=== PATIENT | male | born 1940 | race Caucasian/White ===

== ENCOUNTER 2017-08-28 14:46 | Emergency (ER) | payer MEDICARE, OTHER ==
[~2017-08-28] VITALS: Ht 193 cm; Wt 89.5 kg
[~2017-08-28 14:46] MED LIST: ALBU18HF2; ALBU8.5H8 INH; ALLO100T PO; ALPR-624 PO; ASPI81TA52 PO; ATOR40TA PO; BUPR150T8 PO; CALC0.2535 PO; FLUT1DIS4 INH; FURO80TA3 PO; GABA-532 PO; HYDR-565 PO; METH500T PO; MUPI22OI30 TP; POTA20TA10; PRED5TAB PO; TIOT18CA3; WALKERFR; WARF7.5T5 PO
[2017-08-28 16:02] LABS: BASOPHILS % (AUTO) 0.3 % (0-1); EOSINOPHILS # (AUTO) 0.1 X10'3 (0-0.9); EOSINOPHILS % (AUTO) 2.2 % (0-6); HEMATOCRIT 38.8 % (42.0-52.0); HEMOGLOBIN 13.1 g/dl (14.0-17.9); LYMPHOCYTES # (AUTO) 0.7 X10'3 (1.1-4.8); LYMPHOCYTES % (AUTO) 12.3 % (21-51); MEAN CORPUSCULAR HEMOGLOBIN 31.4 PG (27.0-31.0); MEAN CORPUSCULAR HGB CONC 33.7 % (33.0-36.5); MEAN CORPUSCULAR VOLUME 93.1 FL (78-98); MEAN PLATELET VOLUME 8.2 FL (7.4-10.4); MONOCYTES # (AUTO) 0.4 X10'3 (0-0.9); MONOCYTES % (AUTO) 6.6 % (2-12); NEUTROPHILS # (AUTO) 4.3 X10'3 (1.8-7.7); NEUTROPHILS % (AUTO) 78.6 % (42-75); PLATELET COUNT 98 X10'3 (140-440); RED BLOOD COUNT 4.17 X10'6 (4.70-6.10); RED CELL DISTRIBUTION WIDTH 22.3 % (11.5-14.5); WHITE BLOOD COUNT 5.5 X10'3 (4.5-11.0)
[2017-08-28 16:07] LABS: INR 3.5 INR; PROTHROMBIN TIME 34.9 SECONDS (9.0-12.0)
[2017-08-28 16:21] LABS: ALANINE AMINOTRANSFERASE 32 U/L (12-78); ALBUMIN/GLOBULIN RATIO 0.8 (1.1-1.5); ALKALINE PHOSPHATASE 133 IU/L (46-116); ANION GAP 7 (8-16); ASPARTATE AMINO TRANSFERASE 37 U/L (10-37); BILIRUBIN,TOTAL 1.2 MG/DL (0.1-1.0); BLOOD UREA NITROGEN 19 MG/DL (7-18); BUN/CREATININE RATIO 13.2 (5.4-32.0); CALCIUM 8.8 MG/DL (8.5-10.1); CHLORIDE 103 MMOL/L (99-107); CREATININE 1.44 MG/DL (0.60-1.10); GLUCOSE 97 MG/DL (70-104); MAGNESIUM 1.9 MG/DL (1.5-2.4); POTASSIUM 3.9 MMOL/L (3.5-5.1); SODIUM 140 MMOL/L (135-145); TOTAL CARBON DIOXIDE 30.4 MMOL/L (24-32); TOTAL PROTEIN 6.7 G/DL (6.4-8.2); eGFR 48 ML/MIN
[2017-08-28] MEDS ORDERED: HYDROcodone/acetaminophen 5mg/325mg tablet PO ONE (16:40)
[2017-08-28 17:09] LABS: D-DIMER 1.17 MG/L FEU (0-0.50)
[2017-08-28] MEDS ORDERED: LEVO500T2 PO (17:28)
[2017-08-28] MEDS ORDERED: HYDR-3965 PO (17:28)
[2017-08-28] MEDS ORDERED: ACET-1 PO (17:35)
[2017-08-28 17:47] VITALS: BP 134/57
== END 2017-08-28 19:25 | disposition home or self-care (01) ==
LOC: ER 14:46
DX: S32.010A Wedge compression fracture of first lumbar vertebra, initial encounter for closed fracture (principal); J18.9 Pneumonia, unspecified organism; J44.0 Chronic obstructive pulmonary disease with (acute) lower respiratory infection; K21.9 Gastro-esophageal reflux disease without esophagitis; I13.0 Hypertensive heart and chronic kidney disease with heart failure and stage 1 through stage 4 chronic kidney disease, or unspecified chronic kidney disease; N18.9 Chronic kidney disease, unspecified; G89.29 Other chronic pain; F41.9 Anxiety disorder, unspecified; F32.9 Major depressive disorder, single episode, unspecified; M10.9 Gout, unspecified; I50.9 Heart failure, unspecified; Z95.1 Presence of aortocoronary bypass graft; Z86.73 Personal history of transient ischemic attack (TIA), and cerebral infarction without residual deficits; W01.0XXA Fall on same level from slipping, tripping and stumbling without subsequent striking against object, initial encounter; Y93.89 Activity, other specified; Y92.89 Other specified places as the place of occurrence of the external cause; Y99.8 Other external cause status
CPT/HCPCS: 36415; 71010; 72100; 80053; 83735; 83880; 84145; 84484; 85025; 85379; 85610; 93005; 99285; A6449; J7030

== ENCOUNTER 2017-09-15 19:34 | Inpatient (IN) | payer MEDICARE, OTHER ==
[~2017-09-15] VITALS: Ht 193 cm; Wt 93.6 kg
[~2017-09-15 19:34] MED LIST changes: +ACET-1 PO; +HYDR-3965 PO; -TIOT18CA3; +TIOT18CA3 IH
[2017-09-15] MEDS ORDERED: ipratropium/albuterol 3ml nebule NEB ONE (20:05)
[2017-09-15] MEDS ORDERED: methylPREDNISolone sod succ 125mg/2ml vial IV ONE (20:05)
[2017-09-15 20:24] LABS: BASOPHILS # (AUTO) 0.1 X10'3 (0-0.2); BASOPHILS % (AUTO) 0.5 % (0-1); EOSINOPHILS % (AUTO) 0.2 % (0-6); HEMATOCRIT 38.4 % (42.0-52.0); HEMOGLOBIN 12.7 g/dl (14.0-17.9); LYMPHOCYTES # (AUTO) 1.2 X10'3 (1.1-4.8); LYMPHOCYTES % (AUTO) 5.9 % (21-51); MEAN CORPUSCULAR HEMOGLOBIN 31.9 PG (27.0-31.0); MEAN CORPUSCULAR HGB CONC 33.1 % (33.0-36.5); MEAN CORPUSCULAR VOLUME 96.2 FL (78-98); MEAN PLATELET VOLUME 7.3 FL (7.4-10.4); MONOCYTES # (AUTO) 0.3 X10'3 (0-0.9); MONOCYTES % (AUTO) 1.7 % (2-12); NEUTROPHILS # (AUTO) 18.1 X10'3 (1.8-7.7); NEUTROPHILS % (AUTO) 91.7 % (42-75); PLATELET COUNT 178 X10'3 (140-440); RED BLOOD COUNT 3.99 X10'6 (4.70-6.10); RED CELL DISTRIBUTION WIDTH 22.1 % (11.5-14.5); WHITE BLOOD COUNT 19.7 X10'3 (4.5-11.0)
[2017-09-15] MEDS ORDERED: COU5T PO (20:26)
[2017-09-15] MEDS ORDERED: ADV50500 IH (20:27)
[2017-09-15 20:36] LABS: D-DIMER 1.13 MG/L FEU (0-0.50); INR 2.3 INR; PROTHROMBIN TIME 22.7 SECONDS (9.0-12.0)
[2017-09-15 20:41] LABS: ABG BASE EXCESS 4.1 mmol/L (-2.0-3.0); ABG HCO3 27.2 mmol/L (22.0-26.0); ABG OXYGEN SATURATION 95.3 % (95-98); ABG PH (T) 7.487 (7.350-7.450); ABG PO2 (T) 78.7 mmHg (83-108); FCOHb 1.6 % (0.5-1.5); FLOW 15 L/min; FMetHb 0.2 % (0.3-1.12); FO2Hb 93.6 % (94-100); PATIENT TEMPERATURE 37.8; RESPIRATORY RATE 26 b/min; TOTAL HEMOGLOBIN 13.2 G/dl (14.0-18.0)
[2017-09-15 20:50] LABS: ALANINE AMINOTRANSFERASE 25 U/L (12-78); ALBUMIN 3.2 G/DL (3.4-5.0); ALBUMIN/GLOBULIN RATIO 0.8 (1.1-1.5); ALKALINE PHOSPHATASE 127 IU/L (46-116); ANION GAP 4 (8-16); ASPARTATE AMINO TRANSFERASE 30 U/L (10-37); BILIRUBIN,TOTAL 1.3 MG/DL (0.1-1.0); BLOOD UREA NITROGEN 17 MG/DL (7-18); BUN/CREATININE RATIO 12.1 (5.4-32.0); CHLORIDE 104 MMOL/L (99-107); GLUCOSE 82 MG/DL (70-104); SODIUM 138 MMOL/L (135-145); TOTAL CARBON DIOXIDE 29.9 MMOL/L (24-32); eGFR 50 ML/MIN
[2017-09-15] MEDS ORDERED: levoFLOXACIN-Levaquin 500mg/D5 100 ML IV ONE (20:50)
[2017-09-15] MEDS ORDERED: ACET-1 (21:19)
[2017-09-15] MEDS ORDERED: acetaminophen 325mg tablet PO PRN (22:00)
[2017-09-15] MEDS ORDERED: ondansetron/PF 4mg/2ml inj IV PRN (22:00)
[2017-09-15] MEDS ORDERED: mag hydrox/Alum hydrox/simeth 30ml oral suspension PO PRN (22:00)
[2017-09-15] MEDS ORDERED: magnesium hydroxide 30ml (MOM) UD suspension PO PRN (22:00)
[2017-09-15 22:10] LABS: CLARITY,URINE Clear (Clear); COLOR,URINE Yellow (Yellow); GLUCOSE, URINE Negative (Neg); KETONES,URINE Negative (Neg); LEUKOCYTE ESTERASE ,URINE Trace (Neg); NITRITES, URINE Negative (Neg); OCCULT BLOOD,URINE Negative (Neg); PH,URINE 6.5 (4.8-8.0); PROTEIN,URINE Negative (Neg)
[2017-09-15] MEDS ORDERED: albuterol 2.5 MG/3 ML nebule NEB PRN (22:10)
[2017-09-15] MEDS ORDERED: ALPRAZolam 0.25mg tablet PO PRN (22:10)
[2017-09-15 22:18] LABS: UA COLLECTION TYPE STRAIGHT CATH
[2017-09-15 22:29] LABS: BACTERIA,URINE NONE SEEN /HPF (Neg); RBC,URINE NONE SEEN /HPF (0-2); SQUAMOUS EPITHELIAL CELL,UR FEW /LPF (FEW); WBC,URINE NONE SEEN /HPF (0-4)
[2017-09-15 22:47] LABS: ANISOCYTOSIS 3+; ELLIPTOCYTES 1+; PLATELET ESTIMATE NORMAL; POLYCHROMASIA FEW; TOTAL CELLS COUNTED 100
[2017-09-15 22:48] LABS: TOXIC GRANULATION 1+; TOXIC VACUOLATION FEW
[2017-09-15 23:00] VITALS: BP 126/65
[2017-09-16] MEDS: methylPREDNISolone sod succ/PF 40mg inj. IV SCH ×3 (00:21→16:45)
[2017-09-16 02:57] LABS: BASOPHILS % (AUTO) 0.1 % (0-1); EOSINOPHILS # (AUTO) 0.4 X10'3 (0-0.9); EOSINOPHILS % (AUTO) 1.9 % (0-6); HEMATOCRIT 34.9 % (42.0-52.0); HEMOGLOBIN 11.6 g/dl (14.0-17.9); LYMPHOCYTES # (AUTO) 0.6 X10'3 (1.1-4.8); MEAN CORPUSCULAR HEMOGLOBIN 32.1 PG (27.0-31.0); MEAN CORPUSCULAR HGB CONC 33.3 % (33.0-36.5); MEAN CORPUSCULAR VOLUME 96.4 FL (78-98); MONOCYTES # (AUTO) 0.1 X10'3 (0-0.9); MONOCYTES % (AUTO) 0.6 % (2-12); NEUTROPHILS # (AUTO) 19.6 X10'3 (1.8-7.7); NEUTROPHILS % (AUTO) 94.4 % (42-75); PLATELET COUNT 154 X10'3 (140-440); RED BLOOD COUNT 3.62 X10'6 (4.70-6.10); RED CELL DISTRIBUTION WIDTH 22.3 % (11.5-14.5); WHITE BLOOD COUNT 20.8 X10'3 (4.5-11.0)
[2017-09-16 03:00] VITALS: BP 106/55
[2017-09-16 03:08] LABS: INR 2.6 INR; PROTHROMBIN TIME 25.8 SECONDS (9.0-12.0)
[2017-09-16 03:32] LABS: ALANINE AMINOTRANSFERASE 23 U/L (12-78); ALBUMIN 2.7 G/DL (3.4-5.0); ALBUMIN/GLOBULIN RATIO 0.8 (1.1-1.5); ALKALINE PHOSPHATASE 105 IU/L (46-116); ANION GAP 4 (8-16); ASPARTATE AMINO TRANSFERASE 23 U/L (10-37); BILIRUBIN,TOTAL 1.2 MG/DL (0.1-1.0); BLOOD UREA NITROGEN 21 MG/DL (7-18); CALCIUM 8.6 MG/DL (8.5-10.1); CHLORIDE 104 MMOL/L (99-107); GLUCOSE 190 MG/DL (70-104); POTASSIUM 4.1 MMOL/L (3.5-5.1); SODIUM 138 MMOL/L (135-145); TOTAL CARBON DIOXIDE 30.5 MMOL/L (24-32); TOTAL PROTEIN 6.1 G/DL (6.4-8.2); eGFR 46 ML/MIN
[2017-09-16] MEDS: ipratropium 0.5 MG/2.5ML nebule IH SCH ×4 (03:38→20:36)
[2017-09-16 06:35] VITALS: BP 125/62
[2017-09-16] MEDS ORDERED: non-formulary drug (Atorvastatin Calcium* (Lipitor*) 1 TAB) PO SCH (08:00)
[2017-09-16] MEDS: mupirocin 2% ointment 22GM TP SCH ×2 (08:00→20:00)
[2017-09-16] MEDS ORDERED: FUROSEMIDE 40 MG PO SCH (08:00)
[2017-09-16] MEDS ORDERED: non-formulary drug (Tiotropium Bromide (Spiriva) 1 PUFF) IH SCH (08:00)
[2017-09-16] MEDS: gabapentin 300mg capsule PO SCH ×3 (09:18→21:39)
[2017-09-16] MEDS: atorvastatin 20mg tablet PO SCH (09:18)
[2017-09-16] MEDS: furosemide 40mg tablet PO SCH ×2 (09:19→21:39)
[2017-09-16] MEDS: allopurinol 100mg tablet PO SCH (09:19)
[2017-09-16 11:00] VITALS: BP 120/55
[2017-09-16] MEDS: levoFLOXACIN 750MG TABLET PO SCH (11:00)
[2017-09-16 15:00] VITALS: BP 142/65
[2017-09-16] MEDS: cefTRIAXone 1g/NS 100ml IVPB 100 ML IV SCH (16:45)
[2017-09-16 19:00] VITALS: BP 123/68
[2017-09-16] MEDS ORDERED: warfarin 5mg tablet PO SCH (21:00)
[2017-09-16 23:00] VITALS: BP 120/58
[2017-09-17] VITALS (7 sets, daily range): BP systolic 114–143; BP diastolic 52–64
[2017-09-17] MEDS: methylPREDNISolone sod succ/PF 40mg inj. IV SCH ×3 (00:33→16:59)
[2017-09-17] MEDS: ipratropium 0.5 MG/2.5ML nebule IH SCH ×4 (03:00→20:45)
[2017-09-17 05:27] LABS: INR 1.6 INR; PROTHROMBIN TIME 16.3 SECONDS (9.0-12.0)
[2017-09-17 05:34] LABS: BASOPHILS % (AUTO) 0 % (0-1); EOSINOPHILS # (AUTO) 0.3 X10'3 (0-0.9); EOSINOPHILS % (AUTO) 1.8 % (0-6); HEMATOCRIT 32.4 % (42.0-52.0); HEMOGLOBIN 10.7 g/dl (14.0-17.9); LYMPHOCYTES # (AUTO) 0.5 X10'3 (1.1-4.8); LYMPHOCYTES % (AUTO) 3.3 % (21-51); MEAN CORPUSCULAR HGB CONC 33.1 % (33.0-36.5); MEAN CORPUSCULAR VOLUME 96.6 FL (78-98); MEAN PLATELET VOLUME 8.4 FL (7.4-10.4); MONOCYTES # (AUTO) 0.3 X10'3 (0-0.9); MONOCYTES % (AUTO) 1.8 % (2-12); NEUTROPHILS # (AUTO) 14.4 X10'3 (1.8-7.7); NEUTROPHILS % (AUTO) 93.1 % (42-75); PLATELET COUNT 133 X10'3 (140-440); RED BLOOD COUNT 3.36 X10'6 (4.70-6.10); RED CELL DISTRIBUTION WIDTH 21.7 % (11.5-14.5); WHITE BLOOD COUNT 15.5 X10'3 (4.5-11.0)
[2017-09-17 05:44] LABS: ALANINE AMINOTRANSFERASE 23 U/L (12-78); ALBUMIN 2.5 G/DL (3.4-5.0); ALBUMIN/GLOBULIN RATIO 0.8 (1.1-1.5); ALKALINE PHOSPHATASE 96 IU/L (46-116); ANION GAP 5 (8-16); ASPARTATE AMINO TRANSFERASE 20 U/L (10-37); BILIRUBIN,TOTAL 0.7 MG/DL (0.1-1.0); BLOOD UREA NITROGEN 24 MG/DL (7-18); BUN/CREATININE RATIO 18.5 (5.4-32.0); CALCIUM 8.5 MG/DL (8.5-10.1); CHLORIDE 104 MMOL/L (99-107); GLUCOSE 141 MG/DL (70-104); POTASSIUM 3.6 MMOL/L (3.5-5.1); SODIUM 139 MMOL/L (135-145); TOTAL PROTEIN 5.8 G/DL (6.4-8.2); eGFR 54 ML/MIN
[2017-09-17] MEDS: cefTRIAXone 1g/NS 100ml IVPB 100 ML IV SCH (08:09)
[2017-09-17] MEDS: allopurinol 100mg tablet PO SCH (08:09)
[2017-09-17] MEDS: LACTOBACILLUS RHAMNOSUS GG 15 billion unit sprinkle caps PO SCH (08:09)
[2017-09-17] MEDS: gabapentin 300mg capsule PO SCH ×3 (08:09→20:23)
[2017-09-17] MEDS: furosemide 40mg tablet PO SCH ×2 (08:09→20:24)
[2017-09-17] MEDS: atorvastatin 20mg tablet PO SCH (08:09)
[2017-09-17] MEDS: mupirocin 2% ointment 22GM TP SCH ×2 (13:51→20:24)
[2017-09-17] MEDS: levoFLOXACIN 750MG TABLET PO SCH (13:51)
[2017-09-17] MEDS ORDERED: warfarin 10mg tablet PO ONE (21:00)
[2017-09-18] MEDS: methylPREDNISolone sod succ/PF 40mg inj. IV SCH ×4 (00:47→20:26)
[2017-09-18 03:00] VITALS: BP 136/60
[2017-09-18] MEDS: ipratropium/albuterol 3ml nebule NEB SCH ×4 (03:38→21:05)
[2017-09-18 06:00] VITALS: BP 109/50
[2017-09-18 06:40] LABS: INR 1.5 INR; PROTHROMBIN TIME 15.6 SECONDS (9.0-12.0)
[2017-09-18 07:06] LABS: BASOPHILS % (AUTO) 0.1 % (0-1); EOSINOPHILS % (AUTO) 0 % (0-6); HEMATOCRIT 36.1 % (42.0-52.0); HEMOGLOBIN 12.6 g/dl (14.0-17.9); LYMPHOCYTES # (AUTO) 0.5 X10'3 (1.1-4.8); LYMPHOCYTES % (AUTO) 3.5 % (21-51); MEAN CORPUSCULAR HEMOGLOBIN 33.2 PG (27.0-31.0); MEAN CORPUSCULAR HGB CONC 34.8 % (33.0-36.5); MEAN CORPUSCULAR VOLUME 95.3 FL (78-98); MEAN PLATELET VOLUME 8.3 FL (7.4-10.4); MONOCYTES # (AUTO) 0.3 X10'3 (0-0.9); NEUTROPHILS # (AUTO) 14.6 X10'3 (1.8-7.7); NEUTROPHILS % (AUTO) 94.4 % (42-75); PLATELET COUNT 211 X10'3 (140-440); RED BLOOD COUNT 3.79 X10'6 (4.70-6.10); RED CELL DISTRIBUTION WIDTH 20.1 % (11.5-14.5); WHITE BLOOD COUNT 15.4 X10'3 (4.5-11.0)
[2017-09-18 07:10] LABS: ALANINE AMINOTRANSFERASE 28 U/L (12-78); ALBUMIN 2.9 G/DL (3.4-5.0); ALBUMIN/GLOBULIN RATIO 0.8 (1.1-1.5); ALKALINE PHOSPHATASE 117 IU/L (46-116); ANION GAP 13 (8-16); ASPARTATE AMINO TRANSFERASE 25 U/L (10-37); BILIRUBIN,TOTAL 0.5 MG/DL (0.1-1.0); BLOOD UREA NITROGEN 31 MG/DL (7-18); BUN/CREATININE RATIO 18.2 (5.4-32.0); CALCIUM 9.1 MG/DL (8.5-10.1); CHLORIDE 105 MMOL/L (99-107); GLUCOSE 153 MG/DL (70-104); POTASSIUM 3.7 MMOL/L (3.5-5.1); SODIUM 144 MMOL/L (135-145); TOTAL CARBON DIOXIDE 26.2 MMOL/L (24-32); TOTAL PROTEIN 6.7 G/DL (6.4-8.2); eGFR 40 ML/MIN
[2017-09-18] MEDS: mupirocin 2% ointment 22GM TP SCH ×2 (08:14→20:26)
[2017-09-18] MEDS: cefTRIAXone 1g/NS 100ml IVPB 100 ML IV SCH (08:14)
[2017-09-18] MEDS: furosemide 40mg tablet PO SCH (08:20)
[2017-09-18] MEDS: LACTOBACILLUS RHAMNOSUS GG 15 billion unit sprinkle caps PO SCH (08:20)
[2017-09-18] MEDS: gabapentin 300mg capsule PO SCH ×3 (08:20→20:26)
[2017-09-18] MEDS: atorvastatin 20mg tablet PO SCH (08:20)
[2017-09-18] MEDS: allopurinol 100mg tablet PO SCH (08:21)
[2017-09-18 11:00] VITALS: BP 124/70
[2017-09-18] MEDS: levoFLOXACIN 750MG TABLET PO SCH (11:19)
[2017-09-18 13:45] LABS: ABG BASE EXCESS 2.7 mmol/L (-2.0-3.0); ABG HCO3 26.4 mmol/L (22.0-26.0); ABG OXYGEN SATURATION 92.9 % (95-98); ABG PCO2 (T) 37.4 mmHg (35.0-48.0); ABG PH (T) 7.466 (7.350-7.450); ABG PO2 (T) 67.8 mmHg (83-108); ALLEN'S TEST Positive; FCOHb 1.1 % (0.5-1.5); FLOW 10 L/min; FMetHb 0.2 % (0.3-1.12); FO2Hb 91.7 % (94-100); TOTAL HEMOGLOBIN 13.1 G/dl (14.0-18.0)
[2017-09-18 15:00] VITALS: BP 131/67
[2017-09-18 19:00] VITALS: BP 156/75
[2017-09-18] MEDS ORDERED: warfarin 4mg tablet PO ONE (21:00)
[2017-09-18 23:00] VITALS: BP 160/64
[2017-09-19 03:00] VITALS: BP 121/53
[2017-09-19] MEDS: ipratropium/albuterol 3ml nebule NEB SCH ×2 (03:12→08:35)
[2017-09-19 05:27] LABS: BASOPHILS % (AUTO) 0 % (0-1); EOSINOPHILS # (AUTO) 0.1 X10'3 (0-0.9); EOSINOPHILS % (AUTO) 1.5 % (0-6); HEMATOCRIT 33.4 % (42.0-52.0); HEMOGLOBIN 11.1 g/dl (14.0-17.9); LYMPHOCYTES # (AUTO) 0.2 X10'3 (1.1-4.8); LYMPHOCYTES % (AUTO) 2.2 % (21-51); MEAN CORPUSCULAR HEMOGLOBIN 31.9 PG (27.0-31.0); MEAN CORPUSCULAR HGB CONC 33.2 % (33.0-36.5); MEAN CORPUSCULAR VOLUME 96.2 FL (78-98); MEAN PLATELET VOLUME 8.1 FL (7.4-10.4); MONOCYTES # (AUTO) 0.3 X10'3 (0-0.9); MONOCYTES % (AUTO) 3.5 % (2-12); NEUTROPHILS # (AUTO) 8.8 X10'3 (1.8-7.7); NEUTROPHILS % (AUTO) 92.8 % (42-75); PLATELET COUNT 135 X10'3 (140-440); RED BLOOD COUNT 3.47 X10'6 (4.70-6.10); RED CELL DISTRIBUTION WIDTH 21.7 % (11.5-14.5); WHITE BLOOD COUNT 9.5 X10'3 (4.5-11.0)
[2017-09-19 06:00] VITALS: BP 133/67
[2017-09-19 06:03] LABS: INR 2.1 INR; PROTHROMBIN TIME 21.3 SECONDS (9.0-12.0)
[2017-09-19 06:15] LABS: ALANINE AMINOTRANSFERASE 32 U/L (12-78); ALBUMIN 2.5 G/DL (3.4-5.0); ALBUMIN/GLOBULIN RATIO 0.8 (1.1-1.5); ALKALINE PHOSPHATASE 98 IU/L (46-116); ANION GAP 8 (8-16); ASPARTATE AMINO TRANSFERASE 29 U/L (10-37); BILIRUBIN,TOTAL 0.4 MG/DL (0.1-1.0); BLOOD UREA NITROGEN 29 MG/DL (7-18); BUN/CREATININE RATIO 24.2 (5.4-32.0); CALCIUM 8.8 MG/DL (8.5-10.1); CHLORIDE 109 MMOL/L (99-107); GLUCOSE 146 MG/DL (70-104); POTASSIUM 3.3 MMOL/L (3.5-5.1); SODIUM 144 MMOL/L (135-145); TOTAL CARBON DIOXIDE 27.5 MMOL/L (24-32); TOTAL PROTEIN 5.8 G/DL (6.4-8.2); eGFR 59 ML/MIN
[2017-09-19] MEDS: atorvastatin 20mg tablet PO SCH (07:30)
[2017-09-19] MEDS: methylPREDNISolone sod succ/PF 40mg inj. IV SCH (07:31)
[2017-09-19] MEDS: cefTRIAXone 1g/NS 100ml IVPB 100 ML IV SCH (07:31)
[2017-09-19] MEDS: allopurinol 100mg tablet PO SCH (07:31)
[2017-09-19] MEDS: LACTOBACILLUS RHAMNOSUS GG 15 billion unit sprinkle caps PO SCH (07:31)
[2017-09-19] MEDS: gabapentin 300mg capsule PO SCH ×2 (07:31→13:12)
[2017-09-19] MEDS ORDERED: furosemide 40mg tablet PO SCH (08:00)
[2017-09-19] MEDS: mupirocin 2% ointment 22GM TP SCH (08:36)
[2017-09-19] MEDS ORDERED: magnesium Cl slow-release 64mg tablet PO PRN (08:55)
[2017-09-19] MEDS ORDERED: magnesium 4gm in 100ml NS 100 ML IV PRN (08:55)
[2017-09-19] MEDS ORDERED: potassium Cl 40MEQ/NS 500ml 500 ML IV PRN ×2 (08:55)
[2017-09-19] MEDS ORDERED: magnesium 2GM in 50ml NS 50 ML IV PRN (08:55)
[2017-09-19] MEDS ORDERED: potassium Cl 20 mEq SR tablet PO PRN (08:55)
[2017-09-19] MEDS: potassium Cl 20 mEq SR tablet PO PRN ×2 (09:03→13:12)
[2017-09-19] MEDS ORDERED: FURO40TA4 PO (09:38)
[2017-09-19] MEDS ORDERED: ADV50100 INH (09:39)
[2017-09-19 11:00] VITALS: BP 165/64
[2017-09-19] MEDS: levoFLOXACIN 750MG TABLET PO SCH (11:05)
[2017-09-19] MEDS ORDERED: warfarin 3mg tablet PO ONE (21:00)
== END 2017-09-19 14:13 | disposition home health service (06) | DRG 871 ==
LOC: ER 19:35 → ED HOLD 22:00 → PCU 3S 09-16 00:04
PROVIDERS: ADMIT Internal Medicine; ATTEND Internal Medicine
DX: A41.9 Sepsis, unspecified organism (principal); J96.21 Acute and chronic respiratory failure with hypoxia; I13.0 Hypertensive heart and chronic kidney disease with heart failure and stage 1 through stage 4 chronic kidney disease, or unspecified chronic kidney disease; N17.9 Acute kidney failure, unspecified; J18.1 Lobar pneumonia, unspecified organism; I48.91 Unspecified atrial fibrillation; I50.9 Heart failure, unspecified; J44.0 Chronic obstructive pulmonary disease with (acute) lower respiratory infection; J44.1 Chronic obstructive pulmonary disease with (acute) exacerbation; G47.30 Sleep apnea, unspecified; I87.8 Other specified disorders of veins; K21.9 Gastro-esophageal reflux disease without esophagitis; N18.9 Chronic kidney disease, unspecified; F32.9 Major depressive disorder, single episode, unspecified; F41.9 Anxiety disorder, unspecified; G89.29 Other chronic pain; M10.9 Gout, unspecified; M54.9 Dorsalgia, unspecified; R79.1 Abnormal coagulation profile; Z99.81 Dependence on supplemental oxygen; Z95.1 Presence of aortocoronary bypass graft; Z88.8 Allergy status to other drugs, medicaments and biological substances; Z79.899 Other long term (current) drug therapy; Z79.01 Long term (current) use of anticoagulants; Z79.82 Long term (current) use of aspirin; Z87.891 Personal history of nicotine dependence; Z86.718 Personal history of other venous thrombosis and embolism; Z86.73 Personal history of transient ischemic attack (TIA), and cerebral infarction without residual deficits
CPT/HCPCS: 36415; 36600; 71045; 80053; 81001; 82803; 83605; 83880; 84145; 84484; 85018; 85025; 85379; 85610; 87040; 87070; 87088; 87502; 87503; 93005; 93970; 94640; 94760; 96365; 96375; 97110; 97116; 97161; 99285; A4353; A6213; J0696; J1956; J2920; J2930

== ENCOUNTER 2017-09-22 14:45 | Inpatient (IN) | payer MEDICARE, OTHER ==
[~2017-09-22] VITALS: Ht 193 cm; Wt 95.0 kg
[~2017-09-22 14:45] MED LIST changes: +ACET-1; -ACET-1 PO; +ADV50100 INH; -ALBU18HF2; -ASPI81TA52 PO; -BUPR150T8 PO; -CALC0.2535 PO; +COU5T PO; -FLUT1DIS4 INH; +FURO40TA4 PO; -FURO80TA3 PO; -HYDR-3965 PO; -HYDR-565 PO; -METH500T PO; -WARF7.5T5 PO
[2017-09-22] MEDS ORDERED: normal saline 1000ML IV soln IVB ONE (15:00)
[2017-09-22] MEDS ORDERED: magnesium 2GM in 50ml NS 50 ML IV ONE (15:00)
[2017-09-22] MEDS ORDERED: methylPREDNISolone sod succ 125mg/2ml vial IV ONE (15:00)
[2017-09-22] MEDS ORDERED: ipratropium/albuterol 3ml nebule NEB ONE (15:00)
[2017-09-22 15:33] LABS: BASOPHILS # (AUTO) 0.4 X10'3 (0-0.2); BASOPHILS % (AUTO) 1.5 % (0-1); EOSINOPHILS # (AUTO) 0.1 X10'3 (0-0.9); EOSINOPHILS % (AUTO) 0.4 % (0-6); HEMATOCRIT 35.8 % (42.0-52.0); HEMOGLOBIN 12.8 g/dl (14.0-17.9); LYMPHOCYTES # (AUTO) 1.2 X10'3 (1.1-4.8); MEAN CORPUSCULAR HEMOGLOBIN 33.8 PG (27.0-31.0); MEAN CORPUSCULAR HGB CONC 35.8 % (33.0-36.5); MEAN CORPUSCULAR VOLUME 94.4 FL (78-98); MEAN PLATELET VOLUME 8.1 FL (7.4-10.4); MONOCYTES # (AUTO) 1.7 X10'3 (0-0.9); NEUTROPHILS # (AUTO) 21.2 X10'3 (1.8-7.7); NEUTROPHILS % (AUTO) 86.1 % (42-75); PLATELET COUNT 171 X10'3 (140-440); RED BLOOD COUNT 3.79 X10'6 (4.70-6.10); RED CELL DISTRIBUTION WIDTH 18.8 % (11.5-14.5); WHITE BLOOD COUNT 24.6 X10'3 (4.5-11.0)
[2017-09-22 15:37] LABS: INR 2.8 INR; PROTHROMBIN TIME 28.1 SECONDS (9.0-12.0)
[2017-09-22] MEDS ORDERED: levoFLOXACIN-Levaquin 750MG/D5 150 ML IV ONE (15:50)
[2017-09-22 15:53] LABS: ALANINE AMINOTRANSFERASE 30 U/L (12-78); ALBUMIN 2.7 G/DL (3.4-5.0); ALBUMIN/GLOBULIN RATIO 0.8 (1.1-1.5); ALKALINE PHOSPHATASE 94 IU/L (46-116); ANION GAP 7 (8-16); ASPARTATE AMINO TRANSFERASE 37 U/L (10-37); BILIRUBIN,TOTAL 1.4 MG/DL (0.1-1.0); BLOOD UREA NITROGEN 30 MG/DL (7-18); BUN/CREATININE RATIO 21.4 (5.4-32.0); CALCIUM 8.4 MG/DL (8.5-10.1); CHLORIDE 103 MMOL/L (99-107); GLUCOSE 111 MG/DL (70-104); SODIUM 139 MMOL/L (135-145); TOTAL PROTEIN 5.9 G/DL (6.4-8.2); eGFR 50 ML/MIN
[2017-09-22 15:54] LABS: POTASSIUM 4.2 MMOL/L (3.5-5.1)
[2017-09-22 16:35] LABS: ABG HCO3 27.5 mmol/L (22.0-26.0); ABG OXYGEN SATURATION 86.4 % (95-98); ABG PCO2 (T) 37.5 mmHg (35.0-48.0); ABG PH (T) 7.483 (7.350-7.450); ABG PO2 (T) 49.8 mmHg (83-108); ALLEN'S TEST Positive; FCOHb 1.5 % (0.5-1.5); FLOW 4 L/min; FMetHb 0.1 % (0.3-1.12); TOTAL HEMOGLOBIN 12.9 G/dl (14.0-18.0)
[2017-09-22] MEDS ORDERED: magnesium 4gm in 100ml NS 100 ML IV PRN (16:45)
[2017-09-22] MEDS ORDERED: acetaminophen 325mg tablet PO PRN (16:45)
[2017-09-22] MEDS ORDERED: magnesium hydroxide 30ml (MOM) UD suspension PO PRN (16:45)
[2017-09-22] MEDS ORDERED: ondansetron/PF 4mg/2ml inj IV PRN (16:45)
[2017-09-22] MEDS ORDERED: HYDROcodone/acetaminophen 5mg/325mg tablet PO PRN (16:45)
[2017-09-22] MEDS ORDERED: magnesium Cl slow-release 64mg tablet PO PRN (16:45)
[2017-09-22] MEDS ORDERED: mag hydrox/Alum hydrox/simeth 30ml oral suspension PO PRN (16:45)
[2017-09-22] MEDS ORDERED: potassium Cl 20 mEq SR tablet PO PRN ×2 (16:45)
[2017-09-22] MEDS ORDERED: magnesium 2GM in 50ml NS 50 ML IV PRN (16:45)
[2017-09-22] MEDS ORDERED: bisacodyl 10mg suppository rectal RC PRN (16:45)
[2017-09-22] MEDS ORDERED: potassium Cl 40MEQ/NS 500ml 500 ML IV PRN ×2 (16:45)
[2017-09-22] MEDS ORDERED: morphine 2 MG/ML inj. syringe IV PRN ×2 (16:45)
[2017-09-22] MEDS ORDERED: HYDROcodone/acetaminophen 10/325mg tab PO PRN (16:45)
[2017-09-22] MEDS ORDERED: non-formulary drug (Albuterol Sulfate (Proair Hfa) 2 PUFFS) INH SCH (17:00)
[2017-09-22] MEDS ORDERED: albuterol 2.5 MG/3 ML nebule NEB PRN (17:05)
[2017-09-22] MEDS: normal saline 1000ml 1,000 ML IV SCH (18:03)
[2017-09-22 20:00] VITALS: BP 130/92
[2017-09-22] MEDS ORDERED: non-formulary drug (Fluticasone/Salmeterol (Advair 100-50 Diskus) 1 PUFF) INH SCH (20:00)
[2017-09-22] MEDS: ipratropium/albuterol 3ml nebule NEB SCH ×2 (20:35→23:50)
[2017-09-22] MEDS: docusate sod 100mg capsule PO SCH (20:56)
[2017-09-22] MEDS: clindamycin 600mg/D5W 50ml 50 ML IV SCH (20:56)
[2017-09-22] MEDS: warfarin 5mg tablet PO SCH ×2 (21:00→21:42)
[2017-09-22 23:00] VITALS: BP 133/64
[2017-09-22] MEDS: methylPREDNISolone sod succ 125mg/2ml vial IV SCH (23:45)
[2017-09-23] MEDS: clindamycin 600mg/D5W 50ml 50 ML IV SCH ×4 (01:50→20:18)
[2017-09-23] MEDS: ipratropium/albuterol 3ml nebule NEB SCH ×6 (03:20→23:00)
[2017-09-23 06:05] LABS: BASOPHILS % (AUTO) 0 % (0-1); EOSINOPHILS # (AUTO) 0.3 X10'3 (0-0.9); EOSINOPHILS % (AUTO) 2.2 % (0-6); HEMATOCRIT 33.3 % (42.0-52.0); HEMOGLOBIN 11.2 g/dl (14.0-17.9); LYMPHOCYTES # (AUTO) 0.3 X10'3 (1.1-4.8); LYMPHOCYTES % (AUTO) 1.7 % (21-51); MEAN CORPUSCULAR HEMOGLOBIN 31.9 PG (27.0-31.0); MEAN CORPUSCULAR HGB CONC 33.7 % (33.0-36.5); MEAN CORPUSCULAR VOLUME 94.6 FL (78-98); MEAN PLATELET VOLUME 8.1 FL (7.4-10.4); MONOCYTES # (AUTO) 0.1 X10'3 (0-0.9); MONOCYTES % (AUTO) 0.7 % (2-12); NEUTROPHILS # (AUTO) 15.1 X10'3 (1.8-7.7); NEUTROPHILS % (AUTO) 95.4 % (42-75); PLATELET COUNT 133 X10'3 (140-440); RED BLOOD COUNT 3.52 X10'6 (4.70-6.10); RED CELL DISTRIBUTION WIDTH 20.5 % (11.5-14.5); WHITE BLOOD COUNT 15.9 X10'3 (4.5-11.0)
[2017-09-23 06:21] LABS: INR 2.9 INR; PROTHROMBIN TIME 29.3 SECONDS (9.0-12.0)
[2017-09-23 06:32] LABS: ALANINE AMINOTRANSFERASE 30 U/L (12-78); ALBUMIN 2.3 G/DL (3.4-5.0); ALBUMIN/GLOBULIN RATIO 0.7 (1.1-1.5); ALKALINE PHOSPHATASE 85 IU/L (46-116); ANION GAP 8 (8-16); ASPARTATE AMINO TRANSFERASE 23 U/L (10-37); BILIRUBIN,TOTAL 0.9 MG/DL (0.1-1.0); BLOOD UREA NITROGEN 29 MG/DL (7-18); BUN/CREATININE RATIO 24.2 (5.4-32.0); CALCIUM 8.2 MG/DL (8.5-10.1); CHLORIDE 103 MMOL/L (99-107); GLUCOSE 194 MG/DL (70-104); MAGNESIUM 2.4 MG/DL (1.5-2.4); POTASSIUM 3.7 MMOL/L (3.5-5.1); SODIUM 139 MMOL/L (135-145); TOTAL CARBON DIOXIDE 28.3 MMOL/L (24-32); TOTAL PROTEIN 5.5 G/DL (6.4-8.2); eGFR 59 ML/MIN
[2017-09-23] MEDS: K and/or MAG REPLACEMENT MC SCH (07:40)
[2017-09-23] MEDS: normal saline 1000ml 1,000 ML IV SCH (07:48)
[2017-09-23] MEDS: methylPREDNISolone sod succ 125mg/2ml vial IV SCH ×3 (07:49→20:19)
[2017-09-23] MEDS: docusate sod 100mg capsule PO SCH ×2 (07:53→20:18)
[2017-09-23] MEDS: atorvastatin 20mg tablet PO SCH (07:53)
[2017-09-23] MEDS: allopurinol 100mg tablet PO SCH (07:53)
[2017-09-23 08:00] VITALS: BP 125/63
[2017-09-23] MEDS ORDERED: non-formulary drug (Atorvastatin Calcium* (Lipitor*) 1 TAB) PO SCH (08:00)
[2017-09-23] MEDS: levoFLOXACIN-Levaquin 750MG/D5 150 ML IV SCH (09:30)
[2017-09-23] MEDS ORDERED: normal saline 1000ml 1,000 ML IVB ONE (10:24)
[2017-09-23 11:00] VITALS: BP 126/61
[2017-09-23] MEDS: Potassium Cl inj 20 MEQ in normal saline 1000ml 1,000 ML IV SCH ×2 (15:31→20:19)
[2017-09-23] MEDS ORDERED: MESSAGE TO NURSING PO NR (18:00)
[2017-09-23 20:00] VITALS: BP 110/63
[2017-09-23 23:00] VITALS: BP 123/65
[2017-09-24] MEDS: clindamycin 600mg/D5W 50ml 50 ML IV SCH ×4 (01:46→21:33)
[2017-09-24] MEDS: Potassium Cl inj 20 MEQ in normal saline 1000ml 1,000 ML IV SCH (01:47)
[2017-09-24] MEDS: ipratropium/albuterol 3ml nebule NEB SCH ×6 (03:26→23:48)
[2017-09-24 06:09] LABS: BASOPHILS % (AUTO) 0 % (0-1); EOSINOPHILS # (AUTO) 0.3 X10'3 (0-0.9); EOSINOPHILS % (AUTO) 2.2 % (0-6); HEMATOCRIT 32.1 % (42.0-52.0); HEMOGLOBIN 11.1 g/dl (14.0-17.9); LYMPHOCYTES # (AUTO) 0.3 X10'3 (1.1-4.8); LYMPHOCYTES % (AUTO) 2.4 % (21-51); MEAN CORPUSCULAR HEMOGLOBIN 32.4 PG (27.0-31.0); MEAN CORPUSCULAR HGB CONC 34.6 % (33.0-36.5); MEAN CORPUSCULAR VOLUME 93.8 FL (78-98); MEAN PLATELET VOLUME 8.3 FL (7.4-10.4); MONOCYTES # (AUTO) 0.3 X10'3 (0-0.9); MONOCYTES % (AUTO) 2.5 % (2-12); NEUTROPHILS # (AUTO) 10.9 X10'3 (1.8-7.7); NEUTROPHILS % (AUTO) 92.9 % (42-75); PLATELET COUNT 111 X10'3 (140-440); RED BLOOD COUNT 3.42 X10'6 (4.70-6.10); RED CELL DISTRIBUTION WIDTH 19.9 % (11.5-14.5); WHITE BLOOD COUNT 11.7 X10'3 (4.5-11.0)
[2017-09-24 06:17] LABS: INR 2.9 INR; PROTHROMBIN TIME 28.6 SECONDS (9.0-12.0)
[2017-09-24 06:32] LABS: ALANINE AMINOTRANSFERASE 26 U/L (12-78); ALBUMIN 2.4 G/DL (3.4-5.0); ALBUMIN/GLOBULIN RATIO 0.8 (1.1-1.5); ALKALINE PHOSPHATASE 85 IU/L (46-116); ANION GAP 9 (8-16); ASPARTATE AMINO TRANSFERASE 26 U/L (10-37); BILIRUBIN,TOTAL 0.7 MG/DL (0.1-1.0); BLOOD UREA NITROGEN 28 MG/DL (7-18); BUN/CREATININE RATIO 25.5 (5.4-32.0); CALCIUM 8.3 MG/DL (8.5-10.1); CHLORIDE 108 MMOL/L (99-107); GLUCOSE 138 MG/DL (70-104); MAGNESIUM 2.2 MG/DL (1.5-2.4); POTASSIUM 3.6 MMOL/L (3.5-5.1); SODIUM 142 MMOL/L (135-145); TOTAL CARBON DIOXIDE 25.1 MMOL/L (24-32); TOTAL PROTEIN 5.5 G/DL (6.4-8.2); eGFR 65 ML/MIN
[2017-09-24] MEDS: K and/or MAG REPLACEMENT MC SCH (06:36)
[2017-09-24 07:00] VITALS: BP 121/63
[2017-09-24] MEDS: LACTOBACILLUS RHAMNOSUS GG 15 billion unit sprinkle caps PO SCH (07:25)
[2017-09-24] MEDS: allopurinol 100mg tablet PO SCH (07:25)
[2017-09-24] MEDS: methylPREDNISolone sod succ 125mg/2ml vial IV SCH ×2 (07:25→21:40)
[2017-09-24] MEDS: docusate sod 100mg capsule PO SCH ×2 (07:25→21:41)
[2017-09-24] MEDS: atorvastatin 20mg tablet PO SCH (07:25)
[2017-09-24] MEDS: levoFLOXACIN-Levaquin 750MG/D5 150 ML IV SCH (09:19)
[2017-09-24] MEDS ORDERED: ASPI-280 (09:33)
[2017-09-24] MEDS ORDERED: ARFO15VI3 NEB (09:35)
[2017-09-24] MEDS ORDERED: FAMO20TA8 PO (09:36)
[2017-09-24] MEDS ORDERED: BUPR150T8 PO (09:38)
[2017-09-24 11:00] VITALS: BP 132/66
[2017-09-24] MEDS ORDERED: potassium Cl 20 mEq SR tablet PO SCH (17:30)
[2017-09-24 20:00] VITALS: BP 140/67
[2017-09-24] MEDS: furosemide 20 MG/2 ML vial IV SCH (21:39)
[2017-09-24] MEDS: potassium Cl 20 mEq SR tablet PO SCH (21:41)
[2017-09-25] VITALS: BP 138/70
[2017-09-25] MEDS: ipratropium/albuterol 3ml nebule NEB SCH ×6 (02:25→23:43)
[2017-09-25] MEDS: clindamycin 600mg/D5W 50ml 50 ML IV SCH ×4 (04:19→22:00)
[2017-09-25 06:03] LABS: BASOPHILS % (AUTO) 0.3 % (0-1); EOSINOPHILS # (AUTO) 0.1 X10'3 (0-0.9); EOSINOPHILS % (AUTO) 1.5 % (0-6); HEMATOCRIT 32.7 % (42.0-52.0); HEMOGLOBIN 11.2 g/dl (14.0-17.9); LYMPHOCYTES # (AUTO) 0.3 X10'3 (1.1-4.8); LYMPHOCYTES % (AUTO) 3.4 % (21-51); MEAN CORPUSCULAR HEMOGLOBIN 32.4 PG (27.0-31.0); MEAN CORPUSCULAR HGB CONC 34.2 % (33.0-36.5); MEAN CORPUSCULAR VOLUME 94.8 FL (78-98); MEAN PLATELET VOLUME 8.5 FL (7.4-10.4); MONOCYTES # (AUTO) 0.4 X10'3 (0-0.9); MONOCYTES % (AUTO) 3.6 % (2-12); NEUTROPHILS % (AUTO) 91.2 % (42-75); PLATELET COUNT 107 X10'3 (140-440); RED BLOOD COUNT 3.45 X10'6 (4.70-6.10); RED CELL DISTRIBUTION WIDTH 20.1 % (11.5-14.5); WHITE BLOOD COUNT 9.9 X10'3 (4.5-11.0)
[2017-09-25 06:14] LABS: INR 2.2 INR; PROTHROMBIN TIME 21.9 SECONDS (9.0-12.0)
[2017-09-25 06:44] LABS: ALANINE AMINOTRANSFERASE 29 U/L (12-78); ALBUMIN 2.4 G/DL (3.4-5.0); ALBUMIN/GLOBULIN RATIO 0.8 (1.1-1.5); ALKALINE PHOSPHATASE 79 IU/L (46-116); ANION GAP 7 (8-16); ASPARTATE AMINO TRANSFERASE 25 U/L (10-37); BILIRUBIN,TOTAL 0.7 MG/DL (0.1-1.0); BLOOD UREA NITROGEN 26 MG/DL (7-18); BUN/CREATININE RATIO 23.6 (5.4-32.0); CALCIUM 8.2 MG/DL (8.5-10.1); CHLORIDE 111 MMOL/L (99-107); GLUCOSE 115 MG/DL (70-104); MAGNESIUM 2.3 MG/DL (1.5-2.4); SODIUM 142 MMOL/L (135-145); TOTAL CARBON DIOXIDE 23.8 MMOL/L (24-32); TOTAL PROTEIN 5.5 G/DL (6.4-8.2); eGFR 65 ML/MIN
[2017-09-25 07:00] VITALS: BP 165/74
[2017-09-25] MEDS: K and/or MAG REPLACEMENT MC SCH (08:00)
[2017-09-25] MEDS: potassium Cl 20 mEq SR tablet PO SCH ×2 (08:37→22:03)
[2017-09-25] MEDS: allopurinol 100mg tablet PO SCH (08:37)
[2017-09-25] MEDS: docusate sod 100mg capsule PO SCH ×2 (08:37→20:00)
[2017-09-25] MEDS: LACTOBACILLUS RHAMNOSUS GG 15 billion unit sprinkle caps PO SCH (08:38)
[2017-09-25] MEDS: atorvastatin 20mg tablet PO SCH (08:38)
[2017-09-25] MEDS: furosemide 20 MG/2 ML vial IV SCH (08:38)
[2017-09-25] MEDS: methylPREDNISolone sod succ 125mg/2ml vial IV SCH ×2 (08:38→22:01)
[2017-09-25] MEDS: levoFLOXACIN-Levaquin 750MG/D5 150 ML IV SCH (09:49)
[2017-09-25 11:00] VITALS: BP 134/77
[2017-09-25 18:00] VITALS: BP 161/82
[2017-09-25] MEDS ORDERED: warfarin 5mg tablet PO ONE (21:00)
[2017-09-25] MEDS: furosemide 40mg/4ml inj IV SCH (22:02)
[2017-09-26] VITALS: BP 136/81
[2017-09-26] MEDS: clindamycin 600mg/D5W 50ml 50 ML IV SCH ×4 (02:56→19:24)
[2017-09-26] MEDS: ipratropium/albuterol 3ml nebule NEB SCH ×6 (03:08→23:38)
[2017-09-26 05:27] LABS: INR 1.9 INR; PROTHROMBIN TIME 19.7 SECONDS (9.0-12.0)
[2017-09-26 05:47] LABS: ALANINE AMINOTRANSFERASE 25 U/L (12-78); ALBUMIN 2.7 G/DL (3.4-5.0); ALBUMIN/GLOBULIN RATIO 0.8 (1.1-1.5); ALKALINE PHOSPHATASE 86 IU/L (46-116); ANION GAP 8 (8-16); ASPARTATE AMINO TRANSFERASE 24 U/L (10-37); BLOOD UREA NITROGEN 22 MG/DL (7-18); CALCIUM 8.2 MG/DL (8.5-10.1); CHLORIDE 110 MMOL/L (99-107); GLUCOSE 131 MG/DL (70-104); MAGNESIUM 2.1 MG/DL (1.5-2.4); POTASSIUM 3.8 MMOL/L (3.5-5.1); SODIUM 143 MMOL/L (135-145); TOTAL CARBON DIOXIDE 24.9 MMOL/L (24-32); TOTAL PROTEIN 5.9 G/DL (6.4-8.2); eGFR 73 ML/MIN
[2017-09-26 07:55] VITALS: BP 143/74
[2017-09-26] MEDS: K and/or MAG REPLACEMENT MC SCH (08:00)
[2017-09-26] MEDS: furosemide 40mg/4ml inj IV SCH ×2 (08:14→17:06)
[2017-09-26] MEDS: methylPREDNISolone sod succ 125mg/2ml vial IV SCH (08:14)
[2017-09-26] MEDS: potassium Cl 20 mEq SR tablet PO SCH ×2 (08:15→19:24)
[2017-09-26] MEDS: LACTOBACILLUS RHAMNOSUS GG 15 billion unit sprinkle caps PO SCH (08:15)
[2017-09-26] MEDS: allopurinol 100mg tablet PO SCH (08:15)
[2017-09-26] MEDS: docusate sod 100mg capsule PO SCH ×2 (08:15→19:30)
[2017-09-26] MEDS: atorvastatin 20mg tablet PO SCH (08:15)
[2017-09-26] MEDS ORDERED: enoxaparin 100mg/ml syringe SUBCUT SCH (08:35)
[2017-09-26] MEDS: levoFLOXACIN-Levaquin 750MG/D5 150 ML IV SCH (09:32)
[2017-09-26 11:00] VITALS: BP 123/66
[2017-09-26 16:45] VITALS: BP 156/75
[2017-09-26 18:00] VITALS: BP 136/72
[2017-09-26] MEDS: methylPREDNISolone sod succ/PF 40mg inj. IV SCH (19:24)
[2017-09-26] MEDS: enoxaparin 100mg/ml syringe SUBCUT SCH (19:26)
[2017-09-26] MEDS ORDERED: warfarin 7.5mg tablet PO ONE (21:00)
[2017-09-27] VITALS: BP 150/71
[2017-09-27] MEDS: clindamycin 600mg/D5W 50ml 50 ML IV SCH ×2 (01:05→08:50)
[2017-09-27] MEDS: furosemide 40mg/4ml inj IV SCH ×2 (01:05→08:50)
[2017-09-27] MEDS: ipratropium/albuterol 3ml nebule NEB SCH ×3 (03:03→11:44)
[2017-09-27 06:09] LABS: INR 2.7 INR; PROTHROMBIN TIME 27.2 SECONDS (9.0-12.0)
[2017-09-27 06:34] LABS: ALANINE AMINOTRANSFERASE 29 U/L (12-78); ALBUMIN 2.8 G/DL (3.4-5.0); ALBUMIN/GLOBULIN RATIO 0.9 (1.1-1.5); ALKALINE PHOSPHATASE 90 IU/L (46-116); ANION GAP 10 (8-16); ASPARTATE AMINO TRANSFERASE 23 U/L (10-37); BLOOD UREA NITROGEN 26 MG/DL (7-18); CALCIUM 8.3 MG/DL (8.5-10.1); CHLORIDE 107 MMOL/L (99-107); GLUCOSE 110 MG/DL (70-104); MAGNESIUM 1.9 MG/DL (1.5-2.4); POTASSIUM 3.6 MMOL/L (3.5-5.1); SODIUM 141 MMOL/L (135-145); TOTAL CARBON DIOXIDE 24.2 MMOL/L (24-32); eGFR 54 ML/MIN
[2017-09-27 07:52] VITALS: BP 134/74
[2017-09-27] MEDS: K and/or MAG REPLACEMENT MC SCH (08:00)
[2017-09-27] MEDS: docusate sod 100mg capsule PO SCH (08:00)
[2017-09-27] MEDS: enoxaparin 100mg/ml syringe SUBCUT SCH (08:00)
[2017-09-27] MEDS: LACTOBACILLUS RHAMNOSUS GG 15 billion unit sprinkle caps PO SCH (08:49)
[2017-09-27] MEDS: methylPREDNISolone sod succ/PF 40mg inj. IV SCH (08:49)
[2017-09-27] MEDS: potassium Cl 20 mEq SR tablet PO SCH (08:50)
[2017-09-27] MEDS: allopurinol 100mg tablet PO SCH (08:50)
[2017-09-27] MEDS: atorvastatin 20mg tablet PO SCH (08:50)
[2017-09-27] MEDS: levoFLOXACIN-Levaquin 750MG/D5 150 ML IV SCH (10:03)
[2017-09-27 11:54] VITALS: BP 125/65
[2017-09-27] MEDS ORDERED: PRED5TAB PO (12:06)
[2017-09-27] MEDS ORDERED: CLIN-5 PO (12:06)
[2017-09-27] MEDS ORDERED: LEVO500T2 PO (12:06)
== END 2017-09-27 15:13 | disposition home or self-care (01) | DRG 871 ==
LOC: ER 14:45 → ED HOLD 16:43 → CMPBEDREQ 19:46 → SUR 3N 20:00
PROVIDERS: ADMIT Internal Medicine; ATTEND Internal Medicine
DX: A41.9 Sepsis, unspecified organism (principal); J96.21 Acute and chronic respiratory failure with hypoxia; G93.40 Encephalopathy, unspecified; J84.9 Interstitial pulmonary disease, unspecified; E87.2 Acidosis; I13.0 Hypertensive heart and chronic kidney disease with heart failure and stage 1 through stage 4 chronic kidney disease, or unspecified chronic kidney disease; I48.91 Unspecified atrial fibrillation; I50.9 Heart failure, unspecified; J44.0 Chronic obstructive pulmonary disease with (acute) lower respiratory infection; E86.0 Dehydration; J44.1 Chronic obstructive pulmonary disease with (acute) exacerbation; Z99.81 Dependence on supplemental oxygen; G47.30 Sleep apnea, unspecified; G89.4 Chronic pain syndrome; J20.9 Acute bronchitis, unspecified; F32.9 Major depressive disorder, single episode, unspecified; F41.9 Anxiety disorder, unspecified; M10.9 Gout, unspecified; K21.9 Gastro-esophageal reflux disease without esophagitis; N18.9 Chronic kidney disease, unspecified; Z51.5 Encounter for palliative care; Z90.49 Acquired absence of other specified parts of digestive tract; Z95.1 Presence of aortocoronary bypass graft; Z95.2 Presence of prosthetic heart valve; Z88.8 Allergy status to other drugs, medicaments and biological substances; Z79.51 Long term (current) use of inhaled steroids; Z79.01 Long term (current) use of anticoagulants; Z79.52 Long term (current) use of systemic steroids; Z79.899 Other long term (current) drug therapy; Z86.73 Personal history of transient ischemic attack (TIA), and cerebral infarction without residual deficits; Z87.891 Personal history of nicotine dependence
CPT/HCPCS: 36415; 36600; 71045; 71046; 71250; 80053; 82803; 83605; 83735; 83880; 85018; 85025; 85610; 87040; 87070; 92616; 93005; 94640; 94760; 96365; 96366; 96367; 96375; 97530; 97542; 99285; A6258; J1650; J1940; J1956; J2920; J2930; J3475; J3480; J3490; J7030

== ENCOUNTER 2018-01-23 12:53 | Emergency (ER) | payer MEDICARE, OTHER ==
[~2018-01-23] VITALS: Ht 167.6 cm; Wt 88.6 kg
[~2018-01-23 12:53] MED LIST changes: -ACET-1; -ALBU8.5H8 INH; +ARFO15VI3 NEB; +ASPI-280; +BUPR150T8 PO; +CLIN-5 PO; +FAMO20TA8 PO; -GABA-532 PO; -MUPI22OI30 TP
[2018-01-23 14:06] LABS: BASOPHILS % (AUTO) 0.5 % (0-1); EOSINOPHILS # (AUTO) 0.4 X10'3 (0-0.9); EOSINOPHILS % (AUTO) 4.2 % (0-6); HEMATOCRIT 42.7 % (42.0-52.0); HEMOGLOBIN 14.4 g/dl (14.0-17.9); LYMPHOCYTES # (AUTO) 1.1 X10'3 (1.1-4.8); LYMPHOCYTES % (AUTO) 12.6 % (21-51); MEAN CORPUSCULAR HEMOGLOBIN 30.3 PG (27.0-31.0); MEAN CORPUSCULAR HGB CONC 33.8 % (33.0-36.5); MEAN CORPUSCULAR VOLUME 89.8 FL (78-98); MEAN PLATELET VOLUME 7.3 FL (7.4-10.4); MONOCYTES # (AUTO) 0.4 X10'3 (0-0.9); MONOCYTES % (AUTO) 4.9 % (2-12); NEUTROPHILS % (AUTO) 77.8 % (42-75); PLATELET COUNT 200 X10'3 (140-440); RED BLOOD COUNT 4.75 X10'6 (4.70-6.10)
[2018-01-23 14:17] LABS: ALBUMIN 3.3 G/DL (3.4-5.0); ANION GAP 8 (8-16); BLOOD UREA NITROGEN 19 MG/DL (7-18); BUN/CREATININE RATIO 13.8 (5.4-32.0); CALCIUM 8.9 MG/DL (8.5-10.1); CHLORIDE 105 MMOL/L (99-107); CREATININE 1.38 MG/DL (0.60-1.10); GLUCOSE 91 MG/DL (70-104); POTASSIUM 3.3 MMOL/L (3.5-5.1); SODIUM 140 MMOL/L (135-145); TOTAL CARBON DIOXIDE 27.4 MMOL/L (24-32); eGFR 50 ML/MIN
[2018-01-23] MEDS ORDERED: potassium Cl 20 mEq SR tablet PO STA (14:24)
[2018-01-23] MEDS ORDERED: CEPH-572 PO (14:30)
[2018-01-23 15:30] VITALS: BP 136/98
== END 2018-01-23 15:33 | disposition home or self-care (01) ==
LOC: ER 12:57
DX: S91.311A Laceration without foreign body, right foot, initial encounter (principal); L03.115 Cellulitis of right lower limb; J44.9 Chronic obstructive pulmonary disease, unspecified; R09.02 Hypoxemia; I48.91 Unspecified atrial fibrillation; I13.0 Hypertensive heart and chronic kidney disease with heart failure and stage 1 through stage 4 chronic kidney disease, or unspecified chronic kidney disease; I50.9 Heart failure, unspecified; N18.9 Chronic kidney disease, unspecified; K21.9 Gastro-esophageal reflux disease without esophagitis; G89.29 Other chronic pain; Z95.1 Presence of aortocoronary bypass graft; Z86.73 Personal history of transient ischemic attack (TIA), and cerebral infarction without residual deficits; Z79.01 Long term (current) use of anticoagulants; Z79.82 Long term (current) use of aspirin; Z79.899 Other long term (current) drug therapy; X58.XXXA Exposure to other specified factors, initial encounter; Y93.89 Activity, other specified; Y92.89 Other specified places as the place of occurrence of the external cause; Y99.8 Other external cause status
CPT/HCPCS: 36415; 80048; 85025; 93005; 99285

== ENCOUNTER 2018-02-15 17:45 | Emergency (ER) | payer MEDICARE, OTHER ==
[~2018-02-15] VITALS: Ht 193 cm; Wt 94.0 kg
[2018-02-15] MEDS ORDERED: HYDROcodone/acetaminophen 10/325mg tab PO STA (19:09)
[2018-02-15 21:12] LABS: BASOPHILS % (AUTO) 0.3 % (0-1); EOSINOPHILS % (AUTO) 0.1 % (0-6); HEMOGLOBIN 14.9 g/dl (14.0-17.9); LYMPHOCYTES # (AUTO) 0.9 X10'3 (1.1-4.8); LYMPHOCYTES % (AUTO) 9.2 % (21-51); MEAN CORPUSCULAR HEMOGLOBIN 30.5 PG (27.0-31.0); MEAN CORPUSCULAR VOLUME 89.8 FL (78-98); MEAN PLATELET VOLUME 8.2 FL (7.4-10.4); MONOCYTES # (AUTO) 0.5 X10'3 (0-0.9); MONOCYTES % (AUTO) 4.6 % (2-12); NEUTROPHILS # (AUTO) 8.4 X10'3 (1.8-7.7); NEUTROPHILS % (AUTO) 85.8 % (42-75); PLATELET COUNT 116 X10'3 (140-440); RED BLOOD COUNT 4.89 X10'6 (4.70-6.10); RED CELL DISTRIBUTION WIDTH 18.5 % (11.5-14.5); WHITE BLOOD COUNT 9.8 X10'3 (4.5-11.0)
[2018-02-15 21:27] LABS: ALANINE AMINOTRANSFERASE 22 U/L (12-78); ALBUMIN 3.6 G/DL (3.4-5.0); ALKALINE PHOSPHATASE 118 IU/L (46-116); ANION GAP 9 (8-16); ASPARTATE AMINO TRANSFERASE 23 U/L (10-37); BILIRUBIN,TOTAL 1.4 MG/DL (0.1-1.0); BLOOD UREA NITROGEN 43 MG/DL (7-18); BUN/CREATININE RATIO 23.1 (5.4-32.0); CALCIUM 9.3 MG/DL (8.5-10.1); CHLORIDE 96 MMOL/L (99-107); CREATININE 1.86 MG/DL (0.60-1.10); GLUCOSE 117 MG/DL (70-104); POTASSIUM 3.1 MMOL/L (3.5-5.1); SODIUM 140 MMOL/L (135-145); TOTAL CARBON DIOXIDE 34.9 MMOL/L (24-32); TOTAL PROTEIN 7.2 G/DL (6.4-8.2); eGFR 36 ML/MIN
[2018-02-15 21:32] LABS: PARTIAL THROMBOPLASTIN TIME 56 SECONDS (22-32)
[2018-02-15 21:56] LABS: INR > 9.0 INR
[2018-02-15] MEDS ORDERED: DOXY100C2 PO (22:28)
[2018-02-15] MEDS ORDERED: HYDR-565 PO (22:28)
[2018-02-15 22:51] VITALS: BP 146/86
[2018-02-16] MEDS ORDERED: METO5TAB7 PO (14:56)
[2018-02-16] MEDS ORDERED: COU5T PO (15:02)
[2018-02-16] MEDS ORDERED: PRED10TA PO (15:02)
[2018-02-16] MEDS ORDERED: oxygen NS (15:03)
[2018-02-16] MEDS ORDERED: GABA-532 PO (15:04)
== END 2018-02-15 22:52 | disposition home or self-care (01) ==
LOC: ER 17:46
DX: L03.115 Cellulitis of right lower limb (principal); I83.019 Varicose veins of right lower extremity with ulcer of unspecified site; L97.919 Non-pressure chronic ulcer of unspecified part of right lower leg with unspecified severity; D68.9 Coagulation defect, unspecified; I48.91 Unspecified atrial fibrillation; I50.9 Heart failure, unspecified; I10 Essential (primary) hypertension; J44.9 Chronic obstructive pulmonary disease, unspecified; K21.9 Gastro-esophageal reflux disease without esophagitis; G89.29 Other chronic pain; Z98.890 Other specified postprocedural states; Z79.01 Long term (current) use of anticoagulants; Z79.899 Other long term (current) drug therapy; Z79.2 Long term (current) use of antibiotics
CPT/HCPCS: 36415; 80053; 85025; 85610; 85730; 93971; 99285; A6257

== ENCOUNTER 2018-02-16 11:54 | Inpatient (IN) | payer MEDICARE, OTHER ==
[~2018-02-16] VITALS: Ht 188 cm; Wt 82.6 kg
[~2018-02-16 11:54] MED LIST changes: +DOXY100C2 PO; +HYDR-565 PO
[2018-02-16 12:38] LABS: BASOPHILS # (AUTO) 0.1 X10'3 (0-0.2); BASOPHILS % (AUTO) 0.4 % (0-1); EOSINOPHILS # (AUTO) 0.1 X10'3 (0-0.9); EOSINOPHILS % (AUTO) 0.3 % (0-6); HEMATOCRIT 43.5 % (42.0-52.0); LYMPHOCYTES # (AUTO) 0.4 X10'3 (1.1-4.8); LYMPHOCYTES % (AUTO) 2.2 % (21-51); MEAN CORPUSCULAR HEMOGLOBIN 30.8 PG (27.0-31.0); MEAN CORPUSCULAR HGB CONC 34.4 % (33.0-36.5); MEAN CORPUSCULAR VOLUME 89.4 FL (78-98); MEAN PLATELET VOLUME 8.1 FL (7.4-10.4); MONOCYTES # (AUTO) 0.6 X10'3 (0-0.9); NEUTROPHILS # (AUTO) 17.8 X10'3 (1.8-7.7); NEUTROPHILS % (AUTO) 94.1 % (42-75); PLATELET COUNT 101 X10'3 (140-440); RED BLOOD COUNT 4.86 X10'6 (4.70-6.10); RED CELL DISTRIBUTION WIDTH 18.4 % (11.5-14.5)
[2018-02-16] MEDS ORDERED: normal saline 1000ML IV soln IV ONE (12:50)
[2018-02-16 12:56] LABS: PARTIAL THROMBOPLASTIN TIME 49 SECONDS (22-32); PROTHROMBIN TIME 70.3 SECONDS (9.0-12.0)
[2018-02-16 13:00] LABS: INR 7.3 INR
[2018-02-16 13:02] LABS: ALANINE AMINOTRANSFERASE 19 U/L (12-78); ALBUMIN 3.6 G/DL (3.4-5.0); ALKALINE PHOSPHATASE 116 IU/L (46-116); ANION GAP 13 (8-16); ASPARTATE AMINO TRANSFERASE 27 U/L (10-37); BILIRUBIN,TOTAL 2.3 MG/DL (0.1-1.0); BLOOD UREA NITROGEN 49 MG/DL (7-18); BUN/CREATININE RATIO 22.4 (5.4-32.0); CALCIUM 9.2 MG/DL (8.5-10.1); CHLORIDE 96 MMOL/L (99-107); CREATININE 2.19 MG/DL (0.60-1.10); GLUCOSE 90 MG/DL (70-104); MAGNESIUM 2.2 MG/DL (1.5-2.4); SODIUM 140 MMOL/L (135-145); TOTAL CARBON DIOXIDE 30.6 MMOL/L (24-32); TOTAL PROTEIN 7.2 G/DL (6.4-8.2); eGFR 29 ML/MIN
[2018-02-16 13:06] LABS: POTASSIUM 2.4 MMOL/L (3.5-5.1)
[2018-02-16 13:25] LABS: ABG BASE EXCESS 7.8 mmol/L (-2.0-3.0); ABG OXYGEN SATURATION 84.7 % (95-98); ABG PCO2 (T) 38.3 mmHg (35.0-48.0); ABG PH (T) 7.526 (7.350-7.450); ABG PO2 (T) 48.8 mmHg (83-108); ALLEN'S TEST Positive; FCOHb 1.5 % (0.5-1.5); FLOW 4 L/min; FMetHb 0.1 % (0.3-1.12); FO2Hb 83.3 % (94-100); PATIENT TEMPERATURE 37.2; TOTAL HEMOGLOBIN 14.9 G/dl (14.0-18.0)
[2018-02-16 13:26] LABS: TOTAL CELLS COUNTED 100
[2018-02-16 13:27] LABS: ANISOCYTOSIS 2+; PLATELET ESTIMATE DECREASED
[2018-02-16] MEDS ORDERED: CefTRIAXone 2gm/D5W 50ml 50 ML IV ONE (13:35)
[2018-02-16 13:48] LABS: CLARITY,URINE Clear (Clear); COLOR,URINE Yellow (Yellow); GLUCOSE, URINE Negative (Neg); KETONES,URINE Negative (Neg); LEUKOCYTE ESTERASE ,URINE Negative (Neg); NITRITES, URINE Negative (Neg); OCCULT BLOOD,URINE Negative (Neg); PH,URINE 5.5 (4.8-8.0); PROTEIN,URINE Negative (Neg); UROBILINOGEN,URINE 0.2 E.U/dL (0.2-1.0)
[2018-02-16 13:56] LABS: UA COLLECTION TYPE STRAIGHT CATH
[2018-02-16] MEDS: potassium 10mEq/100ml NS w/LIDOcaine (10mg/bag) IV SCH ×2 (13:58→15:04)
[2018-02-16] MEDS ORDERED: acetaminophen 325mg tablet PO STA (14:18)
[2018-02-16] MEDS ORDERED: furosemide 10 MG/1 ML 10ml inj IV ONE (14:20)
[2018-02-16] MEDS ORDERED: ondansetron/PF 4mg/2ml inj IV PRN (14:50)
[2018-02-16] MEDS ORDERED: methylPREDNISolone sod succ 125mg/2ml vial IV ONE (14:50)
[2018-02-16] MEDS ORDERED: ipratropium/albuterol 3ml nebule NEB PRN (14:50)
[2018-02-16] MEDS ORDERED: mag hydrox/Alum hydrox/simeth 30ml oral suspension PO PRN (14:50)
[2018-02-16] MEDS ORDERED: magnesium hydroxide 30ml (MOM) UD suspension PO PRN (14:50)
[2018-02-16] MEDS ORDERED: HYDROcodone/acetaminophen 5mg/325mg tablet PO PRN (14:50)
[2018-02-16] MEDS ORDERED: bisacodyl 10mg suppository rectal RC PRN (14:50)
[2018-02-16] MEDS ORDERED: acetaminophen 325mg tablet PO PRN ×2 (14:50)
[2018-02-16] MEDS ORDERED: HYDROcodone/acetaminophen 10/325mg tab PO PRN (14:50)
[2018-02-16] MEDS ORDERED: METO5TAB7 PO (14:56)
[2018-02-16] MEDS ORDERED: PRED10TA PO (15:02)
[2018-02-16] MEDS ORDERED: COU5T PO (15:02)
[2018-02-16] MEDS ORDERED: oxygen NS (15:03)
[2018-02-16] MEDS ORDERED: GABA-532 PO (15:04)
[2018-02-16] MEDS: ipratropium/albuterol 3ml nebule NEB SCH ×3 (15:38→23:05)
[2018-02-16 15:50] LABS: HEMOGLOBIN A1C 5.9 % (4.5-6.2)
[2018-02-16 16:01] LABS: ABG BASE EXCESS 3.5 mmol/L (-2.0-3.0); ABG HCO3 26.5 mmol/L (22.0-26.0); ABG OXYGEN SATURATION 90.9 % (95-98); ABG PCO2 (T) 34.9 mmHg (35.0-48.0); ABG PH (T) 7.498 (7.350-7.450); ABG PO2 (T) 60.4 mmHg (83-108); ALLEN'S TEST Positive; FCOHb 1.6 % (0.5-1.5); FMetHb 0.1 % (0.3-1.12); FO2Hb 89.4 % (94-100); MINUTE VOLUME 17 L/min; RESPIRATORY RATE 12 b/min; RESPIRATORY RATE (OBSERVED) 22 b/min; TIDAL VOLUME 781 mL; TOTAL HEMOGLOBIN 13.6 G/dl (14.0-18.0)
[2018-02-16 17:50] VITALS: BP 94/44
[2018-02-16 19:00] VITALS: BP 133/45
[2018-02-16] MEDS ORDERED: magnesium 4gm in 100ml NS 100 ML IV PRN (19:10)
[2018-02-16] MEDS ORDERED: potassium Cl 20 mEq SR tablet PO PRN (19:10)
[2018-02-16] MEDS ORDERED: potassium Cl 40MEQ/NS 500ml 500 ML IV PRN (19:10)
[2018-02-16] MEDS ORDERED: magnesium Cl slow-release 64mg tablet PO PRN (19:10)
[2018-02-16] MEDS ORDERED: magnesium/D5W IVPB 100 ML IV PRN (19:10)
[2018-02-16] MEDS: methylPREDNISolone sod succ 125mg/2ml vial IV SCH (19:51)
[2018-02-16 20:00] VITALS: BP 106/40
[2018-02-16] MEDS ORDERED: HYDROcodone/acetaminophen 10/325mg tab PO SCH (20:00)
[2018-02-16 21:00] VITALS: BP 117/60
[2018-02-16] MEDS ORDERED: temazepam 15mg capsule PO PRN (21:00)
[2018-02-16] MEDS: potassium Cl 40MEQ/NS 500ml 500 ML IV PRN (21:21)
[2018-02-16 22:00] VITALS: BP 133/61
[2018-02-16 23:00] VITALS: BP 114/52
[2018-02-17] VITALS (20 sets, daily range): BP systolic 93–140; BP diastolic 48–91
[2018-02-17] MEDS: potassium Cl 20 mEq SR tablet PO PRN ×4 (01:42→17:35)
[2018-02-17] MEDS: methylPREDNISolone sod succ 125mg/2ml vial IV SCH ×4 (01:42→20:02)
[2018-02-17 03:41] LABS: ABG BASE EXCESS 3.2 mmol/L (-2.0-3.0); ABG HCO3 26.5 mmol/L (22.0-26.0); ABG OXYGEN SATURATION 95.7 % (95-98); ABG PH (T) 7.485 (7.350-7.450); ABG PO2 (T) 80.7 mmHg (83-108); ALLEN'S TEST Positive; FLOW 13 L/min; FMetHb 0.2 % (0.3-1.12); FO2Hb 94.6 % (94-100); PATIENT TEMPERATURE 36.9; TOTAL HEMOGLOBIN 13.4 G/dl (14.0-18.0)
[2018-02-17] MEDS ORDERED: vancomycin/NS 1 GM ADD-VANTAGE 500 ML IV ONE (05:40)
[2018-02-17 05:42] LABS: BASOPHILS % (AUTO) 0 % (0-1); EOSINOPHILS % (AUTO) 0 % (0-6); HEMATOCRIT 36.4 % (42.0-52.0); HEMOGLOBIN 12.5 g/dl (14.0-17.9); LYMPHOCYTES # (AUTO) 0.2 X10'3 (1.1-4.8); LYMPHOCYTES % (AUTO) 1.1 % (21-51); MEAN CORPUSCULAR HEMOGLOBIN 30.8 PG (27.0-31.0); MEAN CORPUSCULAR HGB CONC 34.3 % (33.0-36.5); MEAN CORPUSCULAR VOLUME 89.7 FL (78-98); MEAN PLATELET VOLUME 8.9 FL (7.4-10.4); MONOCYTES # (AUTO) 0.2 X10'3 (0-0.9); NEUTROPHILS # (AUTO) 19.8 X10'3 (1.8-7.7); NEUTROPHILS % (AUTO) 97.9 % (42-75); PLATELET COUNT 96 X10'3 (140-440); RED BLOOD COUNT 4.05 X10'6 (4.70-6.10); RED CELL DISTRIBUTION WIDTH 19.1 % (11.5-14.5); WHITE BLOOD COUNT 20.2 X10'3 (4.5-11.0)
[2018-02-17 06:09] LABS: ALANINE AMINOTRANSFERASE 22 U/L (12-78); ALBUMIN 2.6 G/DL (3.4-5.0); ALBUMIN/GLOBULIN RATIO 0.8 (1.1-1.5); ALKALINE PHOSPHATASE 93 IU/L (46-116); ANION GAP 11 (8-16); ASPARTATE AMINO TRANSFERASE 38 U/L (10-37); BILIRUBIN,TOTAL 1.7 MG/DL (0.1-1.0); BLOOD UREA NITROGEN 43 MG/DL (7-18); BUN/CREATININE RATIO 23.6 (5.4-32.0); CALCIUM 8.2 MG/DL (8.5-10.1); CHLORIDE 99 MMOL/L (99-107); CHOL/HDL RATIO 2.1 (0.00-4.99); CHOLESTEROL 101 MG/DL (0-200); CREATININE 1.82 MG/DL (0.60-1.10); GLUCOSE 205 MG/DL (70-104); HDL CHOLESTEROL 48 MG/DL (35-60); LDL CHOLESTEROL 52 MG/DL (50-100); MAGNESIUM 2.1 MG/DL (1.5-2.4); PHOSPHORUS 3.7 MG/DL (2.3-4.5); SODIUM 138 MMOL/L (135-145); TOTAL CARBON DIOXIDE 27.9 MMOL/L (24-32); TOTAL PROTEIN 5.7 G/DL (6.4-8.2); TRIGLYCERIDES 51 MG/DL (20-135); eGFR 36 ML/MIN
[2018-02-17 06:31] LABS: POTASSIUM 2.5 MMOL/L (3.5-5.1)
[2018-02-17] MEDS: ipratropium/albuterol 3ml nebule NEB SCH ×5 (07:37→23:33)
[2018-02-17] MEDS ORDERED: azithromycin/NS 500mg/250ml 250 ML IV SCH (08:00)
[2018-02-17] MEDS ORDERED: furosemide 40mg/4ml inj IV SCH (08:00)
[2018-02-17] MEDS ORDERED: piperacillin-tazo 2.25gm/50ml 50 ML IV SCH (08:00)
[2018-02-17] MEDS: atorvastatin 20mg tablet PO SCH (08:11)
[2018-02-17] MEDS: CefTRIAXone/D5W-Rocephin 1gm 50 ML IV SCH (08:12)
[2018-02-17 10:10] LABS: PROTHROMBIN TIME 46.2 SECONDS (9.0-12.0)
[2018-02-17 10:15] LABS: INR 4.7 INR
[2018-02-17] MEDS: lactobacillus rhamnosus 10,000 MMU CELLS/CAPSULE PO SCH (20:01)
[2018-02-18] MEDS: methylPREDNISolone sod succ 125mg/2ml vial IV SCH ×4 (02:13→20:16)
[2018-02-18 03:00] VITALS: BP 126/60
[2018-02-18 05:05] LABS: BASOPHILS % (AUTO) 0 % (0-1); EOSINOPHILS % (AUTO) 0 % (0-6); HEMATOCRIT 41.1 % (42.0-52.0); LYMPHOCYTES # (AUTO) 0.1 X10'3 (1.1-4.8); LYMPHOCYTES % (AUTO) 0.7 % (21-51); MEAN CORPUSCULAR HEMOGLOBIN 30.9 PG (27.0-31.0); MEAN CORPUSCULAR VOLUME 90.7 FL (78-98); MEAN PLATELET VOLUME 8.9 FL (7.4-10.4); MONOCYTES # (AUTO) 0.3 X10'3 (0-0.9); MONOCYTES % (AUTO) 1.6 % (2-12); NEUTROPHILS # (AUTO) 20.2 X10'3 (1.8-7.7); NEUTROPHILS % (AUTO) 97.7 % (42-75); PLATELET COUNT 127 X10'3 (140-440); RED BLOOD COUNT 4.54 X10'6 (4.70-6.10); RED CELL DISTRIBUTION WIDTH 19.2 % (11.5-14.5); WHITE BLOOD COUNT 20.7 X10'3 (4.5-11.0)
[2018-02-18 05:21] LABS: PROTHROMBIN TIME 41.5 SECONDS (9.0-12.0)
[2018-02-18 05:25] LABS: ALANINE AMINOTRANSFERASE 31 U/L (12-78); ALBUMIN 3.2 G/DL (3.4-5.0); ALBUMIN/GLOBULIN RATIO 0.9 (1.1-1.5); ALKALINE PHOSPHATASE 106 IU/L (46-116); ASPARTATE AMINO TRANSFERASE 55 U/L (10-37); BILIRUBIN,TOTAL 1.4 MG/DL (0.1-1.0); BLOOD UREA NITROGEN 43 MG/DL (7-18); BUN/CREATININE RATIO 28.3 (5.4-32.0); CALCIUM 9.1 MG/DL (8.5-10.1); CHLORIDE 99 MMOL/L (99-107); CREATININE 1.52 MG/DL (0.60-1.10); GLUCOSE 143 MG/DL (70-104); MAGNESIUM 2.2 MG/DL (1.5-2.4); PHOSPHORUS 2.1 MG/DL (2.3-4.5); POTASSIUM 3.5 MMOL/L (3.5-5.1); TOTAL CARBON DIOXIDE 26.1 MMOL/L (24-32); TOTAL PROTEIN 6.9 G/DL (6.4-8.2); eGFR 45 ML/MIN
[2018-02-18 05:49] LABS: ANION GAP 13 (8-16); SODIUM 138 MMOL/L (135-145)
[2018-02-18 06:34] LABS: INR 4.2 INR
[2018-02-18 06:49] VITALS: BP 149/68
[2018-02-18] MEDS: ipratropium/albuterol 3ml nebule NEB SCH ×5 (07:08→23:29)
[2018-02-18] MEDS: vancomycin inj 1,250 MG in normal saline 250ml IV soln 250 ML IV SCH (07:21)
[2018-02-18] MEDS: lactobacillus rhamnosus 10,000 MMU CELLS/CAPSULE PO SCH ×2 (07:22→20:15)
[2018-02-18] MEDS: CefTRIAXone/D5W-Rocephin 1gm 50 ML IV SCH (07:22)
[2018-02-18] MEDS: atorvastatin 20mg tablet PO SCH (07:22)
[2018-02-18 11:00] VITALS: BP 136/74
[2018-02-18] MEDS ORDERED: ALPRAZolam 0.25mg tablet PO PRN (14:20)
[2018-02-18 15:00] VITALS: BP 153/61
[2018-02-18 18:00] VITALS: BP 124/52
[2018-02-18 22:00] VITALS: BP 133/62
[2018-02-19] MEDS: methylPREDNISolone sod succ 125mg/2ml vial IV SCH ×3 (02:33→13:51)
[2018-02-19 04:58] LABS: BASOPHILS % (AUTO) 0.1 % (0-1); EOSINOPHILS % (AUTO) 0 % (0-6); HEMATOCRIT 36.9 % (42.0-52.0); HEMOGLOBIN 12.4 g/dl (14.0-17.9); LYMPHOCYTES # (AUTO) 0.2 X10'3 (1.1-4.8); LYMPHOCYTES % (AUTO) 1.3 % (21-51); MEAN CORPUSCULAR HEMOGLOBIN 30.7 PG (27.0-31.0); MEAN CORPUSCULAR HGB CONC 33.7 % (33.0-36.5); MEAN CORPUSCULAR VOLUME 91.1 FL (78-98); MONOCYTES # (AUTO) 0.3 X10'3 (0-0.9); MONOCYTES % (AUTO) 2.6 % (2-12); NEUTROPHILS # (AUTO) 11.7 X10'3 (1.8-7.7); RED BLOOD COUNT 4.05 X10'6 (4.70-6.10); RED CELL DISTRIBUTION WIDTH 18.2 % (11.5-14.5); WHITE BLOOD COUNT 12.2 X10'3 (4.5-11.0)
[2018-02-19 05:01] LABS: INR 2.8 INR; PROTHROMBIN TIME 27.6 SECONDS (9.0-12.0)
[2018-02-19 05:17] LABS: ALANINE AMINOTRANSFERASE 30 U/L (12-78); ALBUMIN 2.8 G/DL (3.4-5.0); ALBUMIN/GLOBULIN RATIO 0.9 (1.1-1.5); ALKALINE PHOSPHATASE 82 IU/L (46-116); ANION GAP 9 (8-16); ASPARTATE AMINO TRANSFERASE 46 U/L (10-37); BILIRUBIN,TOTAL 1.2 MG/DL (0.1-1.0); BLOOD UREA NITROGEN 41 MG/DL (7-18); BUN/CREATININE RATIO 31.3 (5.4-32.0); CALCIUM 8.9 MG/DL (8.5-10.1); CHLORIDE 102 MMOL/L (99-107); CREATININE 1.31 MG/DL (0.60-1.10); GLUCOSE 162 MG/DL (70-104); MAGNESIUM 2.5 MG/DL (1.5-2.4); PHOSPHORUS 2.2 MG/DL (2.3-4.5); SODIUM 140 MMOL/L (135-145); TOTAL CARBON DIOXIDE 28.6 MMOL/L (24-32); TOTAL PROTEIN 5.9 G/DL (6.4-8.2); eGFR 53 ML/MIN
[2018-02-19 05:31] LABS: POTASSIUM 2.8 MMOL/L (3.5-5.1)
[2018-02-19 06:00] VITALS: BP 117/46
[2018-02-19] MEDS: ipratropium/albuterol 3ml nebule NEB SCH ×5 (07:49→23:00)
[2018-02-19] MEDS: CefTRIAXone/D5W-Rocephin 1gm 50 ML IV SCH (08:07)
[2018-02-19] MEDS: furosemide 40mg tablet PO SCH (08:07)
[2018-02-19] MEDS: atorvastatin 20mg tablet PO SCH (08:07)
[2018-02-19] MEDS: lactobacillus rhamnosus 10,000 MMU CELLS/CAPSULE PO SCH ×2 (08:07→21:26)
[2018-02-19] MEDS: vancomycin inj 1,250 MG in normal saline 250ml IV soln 250 ML IV SCH (08:17)
[2018-02-19] MEDS: potassium Cl 40MEQ/NS 500ml 500 ML IV PRN (10:40)
[2018-02-19 11:09] LABS: ANISOCYTOSIS 2+
[2018-02-19 11:10] LABS: POIKILOCYTOSIS 1+; POLYCHROMASIA FEW
[2018-02-19 12:00] VITALS: BP 127/49
[2018-02-19 15:00] VITALS: BP 124/49
[2018-02-19 19:30] VITALS: BP 142/54
[2018-02-19] MEDS ORDERED: potassium Cl 40MEQ/NS 500ml 500 ML IV PRN (19:30)
[2018-02-19] MEDS ORDERED: warfarin 5mg tablet PO SCH (21:00)
[2018-02-19] MEDS: methylPREDNISolone sod succ/PF 40mg inj. IV SCH (21:25)
[2018-02-19 23:00] VITALS: BP 120/70
[2018-02-20] MEDS: methylPREDNISolone sod succ/PF 40mg inj. IV SCH ×3 (02:35→14:57)
[2018-02-20 03:00] VITALS: BP 115/57
[2018-02-20] MEDS: ipratropium/albuterol 3ml nebule NEB SCH ×2 (03:10→11:46)
[2018-02-20 04:41] LABS: BASOPHILS % (AUTO) 0 % (0-1); EOSINOPHILS % (AUTO) 0 % (0-6); LYMPHOCYTES # (AUTO) 0.2 X10'3 (1.1-4.8); LYMPHOCYTES % (AUTO) 1.7 % (21-51); MEAN CORPUSCULAR HEMOGLOBIN 31.1 PG (27.0-31.0); MEAN CORPUSCULAR HGB CONC 34.2 % (33.0-36.5); MEAN CORPUSCULAR VOLUME 90.9 FL (78-98); MEAN PLATELET VOLUME 9.1 FL (7.4-10.4); MONOCYTES # (AUTO) 0.3 X10'3 (0-0.9); MONOCYTES % (AUTO) 2.5 % (2-12); NEUTROPHILS # (AUTO) 10.5 X10'3 (1.8-7.7); NEUTROPHILS % (AUTO) 95.8 % (42-75); RED BLOOD COUNT 3.85 X10'6 (4.70-6.10); RED CELL DISTRIBUTION WIDTH 18.5 % (11.5-14.5)
[2018-02-20 04:48] LABS: INR 2.6 INR
[2018-02-20 04:52] LABS: ALANINE AMINOTRANSFERASE 34 U/L (12-78); ALBUMIN 2.7 G/DL (3.4-5.0); ALBUMIN/GLOBULIN RATIO 0.9 (1.1-1.5); ALKALINE PHOSPHATASE 87 IU/L (46-116); ANION GAP 5 (8-16); ASPARTATE AMINO TRANSFERASE 44 U/L (10-37); BILIRUBIN,TOTAL 0.7 MG/DL (0.1-1.0); BLOOD UREA NITROGEN 35 MG/DL (7-18); BUN/CREATININE RATIO 27.1 (5.4-32.0); CALCIUM 8.9 MG/DL (8.5-10.1); CHLORIDE 108 MMOL/L (99-107); CREATININE 1.29 MG/DL (0.60-1.10); GLUCOSE 148 MG/DL (70-104); MAGNESIUM 2.1 MG/DL (1.5-2.4); PHOSPHORUS 1.9 MG/DL (2.3-4.5); POTASSIUM 4.2 MMOL/L (3.5-5.1); SODIUM 143 MMOL/L (135-145); TOTAL CARBON DIOXIDE 30.1 MMOL/L (24-32); TOTAL PROTEIN 5.6 G/DL (6.4-8.2); eGFR 54 ML/MIN
[2018-02-20 06:00] VITALS: BP 131/59
[2018-02-20] MEDS: vancomycin inj 1,250 MG in normal saline 250ml IV soln 250 ML IV SCH (06:51)
[2018-02-20] MEDS: furosemide 40mg tablet PO SCH (08:21)
[2018-02-20] MEDS: lactobacillus rhamnosus 10,000 MMU CELLS/CAPSULE PO SCH (08:21)
[2018-02-20] MEDS: atorvastatin 20mg tablet PO SCH (08:22)
[2018-02-20 09:19] LABS: BASOPHILS % (AUTO) 0.3 % (0-1); EOSINOPHILS # (AUTO) 0.2 X10'3 (0-0.9); EOSINOPHILS % (AUTO) 1.4 % (0-6); HEMATOCRIT 36.5 % (42.0-52.0); HEMOGLOBIN 12.6 g/dl (14.0-17.9); LYMPHOCYTES # (AUTO) 0.3 X10'3 (1.1-4.8); LYMPHOCYTES % (AUTO) 2.3 % (21-51); MEAN CORPUSCULAR HEMOGLOBIN 30.8 PG (27.0-31.0); MEAN CORPUSCULAR HGB CONC 34.4 % (33.0-36.5); MEAN CORPUSCULAR VOLUME 89.7 FL (78-98); MONOCYTES # (AUTO) 0.3 X10'3 (0-0.9); MONOCYTES % (AUTO) 2.1 % (2-12); NEUTROPHILS # (AUTO) 12.2 X10'3 (1.8-7.7); NEUTROPHILS % (AUTO) 93.9 % (42-75); RED BLOOD COUNT 4.07 X10'6 (4.70-6.10); RED CELL DISTRIBUTION WIDTH 18.6 % (11.5-14.5); WHITE BLOOD COUNT 12.9 X10'3 (4.5-11.0)
[2018-02-20 09:43] LABS: MEAN PLATELET VOLUME 7.1 FL (7.4-10.4); PLATELET COUNT 127 X10'3 (140-440)
[2018-02-20 11:00] VITALS: BP 143/58
[2018-02-20] MEDS ORDERED: vancomycin inj 1,250 MG in normal saline 250ml IV soln 250 ML IV SCH (19:00)
[2018-02-21] MEDS ORDERED: VANCOMYCIN LEVEL IV ONE ×2 (06:30→18:30)
== END 2018-02-20 16:07 | DRG 871 ==
LOC: ER 11:54 → ED HOLD 14:47 → EDBEDREQ 16:52 → PCU 3S 17:40 → CMPBEDREQ 19:49 → CICU 2S 22:06 → PCU 3S 02-17 15:00
PROVIDERS: ADMIT Family Medicine; ATTEND Family Medicine
PROC: 5A09357 Assistance with Respiratory Ventilation, Less than 24 Consecutive Hours, Continuous Positive Airway Pressure (ICD-10-PCS; principal; 2018-02-16)
PROC: 5A09357 Assistance with Respiratory Ventilation, Less than 24 Consecutive Hours, Continuous Positive Airway Pressure (ICD-10-PCS; 2018-02-18)
DX: A41.9 Sepsis, unspecified organism (principal); G93.41 Metabolic encephalopathy; I50.33 Acute on chronic diastolic (congestive) heart failure; J18.9 Pneumonia, unspecified organism; J96.21 Acute and chronic respiratory failure with hypoxia; N17.9 Acute kidney failure, unspecified; D68.9 Coagulation defect, unspecified; I13.0 Hypertensive heart and chronic kidney disease with heart failure and stage 1 through stage 4 chronic kidney disease, or unspecified chronic kidney disease; J44.0 Chronic obstructive pulmonary disease with (acute) lower respiratory infection; L03.115 Cellulitis of right lower limb; E87.6 Hypokalemia; N18.3 Chronic kidney disease, stage 3 (moderate); E78.5 Hyperlipidemia, unspecified; G47.30 Sleep apnea, unspecified; G89.4 Chronic pain syndrome; I48.91 Unspecified atrial fibrillation; K21.9 Gastro-esophageal reflux disease without esophagitis; F32.9 Major depressive disorder, single episode, unspecified; F41.9 Anxiety disorder, unspecified; M10.9 Gout, unspecified; M54.9 Dorsalgia, unspecified; R74.0 Nonspecific elevation of levels of transaminase and lactic acid dehydrogenase [LDH]; Z95.1 Presence of aortocoronary bypass graft; Z95.2 Presence of prosthetic heart valve; Z99.81 Dependence on supplemental oxygen; Z88.8 Allergy status to other drugs, medicaments and biological substances; Z79.01 Long term (current) use of anticoagulants; Z79.52 Long term (current) use of systemic steroids; Z86.73 Personal history of transient ischemic attack (TIA), and cerebral infarction without residual deficits; Z86.79 Personal history of other diseases of the circulatory system; Z87.891 Personal history of nicotine dependence
CPT/HCPCS: 36415; 36600; 70450; 71045; 80053; 80061; 81003; 82803; 83036; 83605; 83735; 83880; 84100; 84132; 84145; 84484; 85018; 85025; 85610; 85730; 87040; 87070; 87077; 87186; 93005; 93306; 94640; 94660; 94760; 96365; 96375; 97110; 97116; 97162; 97530; 99291; A4353; A6212; A6213; A6250; A6258; A6446; A6449; A9270; C1758; J0696; J1940; J2543; J2920; J2930; J3370; J3480; J7030

== ENCOUNTER 2018-07-12 15:23 | Emergency (ER) | payer MEDICARE, OTHER ==
[~2018-07-12] VITALS: Ht 193 cm; Wt 74.0 kg
[~2018-07-12 15:23] MED LIST changes: -ADV50100 INH; -ALPR-624 PO; -ASPI-280; -BUPR150T8 PO; -CLIN-5 PO; -DOXY100C2 PO; -FAMO20TA8 PO; +GABA-532 PO; -HYDR-565 PO; +METO5TAB7 PO; +PRED10TA PO; -PRED5TAB PO; -TIOT18CA3 IH; +oxygen NS
[2018-07-12 16:05] LABS: BASOPHILS # (AUTO) 0.1 X10'3 (0-0.2); BASOPHILS % (AUTO) 0.6 % (0-1); EOSINOPHILS % (AUTO) 0.1 % (0-6); HEMATOCRIT 40.3 % (42.0-52.0); HEMOGLOBIN 13.3 g/dl (14.0-17.9); LYMPHOCYTES # (AUTO) 0.6 X10'3 (1.1-4.8); LYMPHOCYTES % (AUTO) 4.7 % (21-51); MEAN CORPUSCULAR HEMOGLOBIN 29.3 PG (27.0-31.0); MEAN PLATELET VOLUME 8.9 FL (7.4-10.4); MONOCYTES # (AUTO) 0.9 X10'3 (0-0.9); MONOCYTES % (AUTO) 6.4 % (2-12); NEUTROPHILS % (AUTO) 88.2 % (42-75); PLATELET COUNT 151 X10'3 (140-440); RED BLOOD COUNT 4.53 X10'6 (4.70-6.10); RED CELL DISTRIBUTION WIDTH 18.7 % (11.5-14.5); WHITE BLOOD COUNT 13.7 X10'3 (4.5-11.0)
[2018-07-12] MEDS: HYDROmorphone inj. 0.5 MG/0.5 ML DISP.SYRIN IV ONE ×2 (16:11→18:01)
[2018-07-12 16:18] LABS: PROTHROMBIN TIME 51.6 SECONDS (9.0-12.0)
[2018-07-12 16:19] LABS: INR 5.6 INR
[2018-07-12 16:24] LABS: ALANINE AMINOTRANSFERASE 108 U/L (12-78); ALBUMIN 2.7 G/DL (3.4-5.0); ALBUMIN/GLOBULIN RATIO 0.7 (1.1-1.5); ALKALINE PHOSPHATASE 121 IU/L (46-116); ANION GAP 8 (8-16); ASPARTATE AMINO TRANSFERASE 326 U/L (10-37); BILIRUBIN,TOTAL 1.2 MG/DL (0.1-1.0); BLOOD UREA NITROGEN 29 MG/DL (7-18); BUN/CREATININE RATIO 21.3 (5.4-32.0); CALCIUM 8.7 MG/DL (8.5-10.1); CHLORIDE 102 MMOL/L (99-107); CREATININE 1.36 MG/DL (0.60-1.10); GLUCOSE 111 MG/DL (70-104); POTASSIUM 3.9 MMOL/L (3.5-5.1); SODIUM 138 MMOL/L (135-145); TOTAL CARBON DIOXIDE 27.6 MMOL/L (24-32); TOTAL PROTEIN 6.5 G/DL (6.4-8.2); eGFR 51 ML/MIN
[2018-07-12 16:31] LABS: MAGNESIUM 2.3 MG/DL (1.5-2.4)
[2018-07-12 18:05] LABS: CLARITY,URINE CLEAR (Clear); COLOR,URINE YELLOW (Yellow); GLUCOSE, URINE NEGATIVE (Neg); KETONES,URINE NEGATIVE (Neg); LEUKOCYTE ESTERASE ,URINE TRACE (Neg); NITRITES, URINE NEGATIVE (Neg); OCCULT BLOOD,URINE SMALL (Neg); PROTEIN,URINE NEGATIVE (Neg); UROBILINOGEN,URINE 0.2 E.U/dL (0.2-1.0)
[2018-07-12 18:06] LABS: UA COLLECTION TYPE STRAIGHT CATH
[2018-07-12 18:13] LABS: MUCUS STRANDS MANY /LPF (Neg); SQUAMOUS EPITHELIAL CELL,UR FEW /LPF (FEW)
[2018-07-12 18:14] LABS: TRANSITIONAL EPI CELLS,URINE FEW /HPF; YEAST MANY /HPF (NEGATIVE)
[2018-07-12 18:15] LABS: WBC,URINE 0-4 /HPF (0-4)
[2018-07-12] MEDS ORDERED: HYDROmorphone inj. 0.5 MG/0.5 ML DISP.SYRIN IV ONE (18:15)
[2018-07-12 18:16] LABS: BACTERIA,URINE NONE SEEN /HPF (Neg); RENAL CELLS, URINE FEW /HPF
[2018-07-12 21:27] VITALS: BP 152/69
== END 2018-07-12 21:28 | disposition short-term general hospital (02) ==
LOC: ER 15:23
DX: M54.5 Low back pain (principal); R60.0 Localized edema; L81.8 Other specified disorders of pigmentation; G89.29 Other chronic pain; I48.91 Unspecified atrial fibrillation; I13.0 Hypertensive heart and chronic kidney disease with heart failure and stage 1 through stage 4 chronic kidney disease, or unspecified chronic kidney disease; N18.9 Chronic kidney disease, unspecified; I50.9 Heart failure, unspecified; J44.9 Chronic obstructive pulmonary disease, unspecified; K21.9 Gastro-esophageal reflux disease without esophagitis; M10.9 Gout, unspecified; Z86.73 Personal history of transient ischemic attack (TIA), and cerebral infarction without residual deficits; Z95.1 Presence of aortocoronary bypass graft; Z98.890 Other specified postprocedural states; Z88.6 Allergy status to analgesic agent; Z79.899 Other long term (current) drug therapy; Z79.01 Long term (current) use of anticoagulants
CPT/HCPCS: 36415; 71045; 72100; 80053; 81001; 83735; 83880; 85025; 85610; 87088; 93005; 96374; 96376; 99285; J1170; P9612